=== PATIENT | male | born 1970 | race Caucasian/White ===

== ENCOUNTER 2017-10-30 05:03 | Inpatient (IN) | payer OTHER ==
[2017-10-30 06:28] LABS: Hematocrit 46.2 % (35.5-45.6); Hemoglobin 15.5 gm/dl (11.8-15.2); Mean Corpuscular HGB Conc 34 % (32-34); Mean Corpuscular Hemoglobin 30 pg (28-32); Mean Corpuscular Volume 90 fl (84-94); Platelet Count 252 K/mm3 (140-440); Red Blood Count 5.16 M/mm3 (3.65-5.03); Red Cell Distribution Width 12.8 % (13.2-15.2)
[2017-10-30 06:41] LABS: Alanine Aminotransferase 27 units/L (7-56); Albumin 4.7 g/dL (3.9-5); BUN/Creatinine Ratio 15; Blood Urea Nitrogen 9 mg/dL (9-20); Calcium 9.9 mg/dL (8.4-10.2); Hemolysis Index 36; Lipase 22 units/L (13-60)
[2017-10-30 07:55] LABS: Bilirubin,Urine NEG (Negative); Blood,Urine NEG (Negative); Color,Urine Yellow (Yellow); Mucus,Urine FEW /HPF; Nitrite,Urine NEG (Negative); Urobilinogen,Urine < 2.0 mg/dL (<2.0)
[2017-10-30 08:05] LABS: Basophils % (Manual) 0 % (0.0-1.8); Eosinophils % (Manual) 0 % (0.0-4.3); Total Cells Counted 100
[2017-10-30 08:06] LABS: Anisocytosis 1+; Platelet Estimate Cons; Toxic Granulation Few
[2017-10-30] MEDS ORDERED: ZOFRAN IV ONE (21:20)
[2017-10-30] MEDS ORDERED: SUBLIMAZE IV ONE (21:20)
[2017-10-30] MEDS ORDERED: NACL 0.9% 1000 ML 1,000 ML IV ONE (21:21)
--- NOTE | 2017-10-30 21:28 | Emergency Department Report ---
HPI - General Chief Complaint: Abdominal Pain Time Seen by Provider: 10/30/17 21:17 - HPI HPI: Room 38 The patient is a 47-year-old male presenting with a chief complaint of abdominal pain. Patient states his pain began last night and has been a constant sharp pain. Patient missed and nausea but denies vomiting diarrhea or dysuria. He gives his pain a score of 8/10. Patient's last meal occurred last night as he exhibits positive anorexia Location: Right lower quadrant Duration: Constant since last night Quality: Sharp Severity: 8/10 Modifying factors: [see above] Context: [see above] Mode of transportation: [not driving] ED Past Medical Hx - Past Medical History Previous Medical History?: No - Surgical History Past Surgical History?: No - Family History Family history: no significant - Social History Smoking Status: Never Smoker Substance Use Type: Alcohol (moderate) ED Review of Systems ROS: Stated complaint: RT SIDE PAIN Other details as noted in HPI Constitutional: other (anorexia) Gastrointestinal: abdominal pain, nausea. denies: vomiting, diarrhea Genitourinary: denies: dysuria Physical Exam - Physical Exam Vital Signs: Vital Signs 10/30/17 10/30/17 05:12 21:11 Temperature 98.7 F Pulse Rate 80 93 H Respiratory 17 18 Rate Blood Pressure 151/110 Blood Pressure 161/103 [Left] O2 Sat by Pulse 99 Oximetry Physical Exam: GENERAL: The patient is well-developed well-nourished male lying on stretcher not appearing to be in acute distress. [] HEENT: Normocephalic. Atraumatic. Extraocular motions are intact. Patient has moist mucous membranes. NECK: Supple. Trachea midline CHEST/LUNGS: Clear to auscultation. There is no respiratory distress noted. HEART/CARDIOVASCULAR: Regular. There is no tachycardia. There is no gallop rub or murmur. ABDOMEN: Abdomen is soft, with tenderness to palpation in the right upper quadrant and right lower quadrant. Patient has normal bowel sounds. There is no abdominal distention. SKIN: There is no rash. There is no edema. There is no diaphoresis. NEURO: The patient is awake, alert, and oriented. The patient is cooperative. The patient has normal speech MUSCULOSKELETAL: There is no evidence of acute injury. ED Course Vital Signs 10/30/17 10/30/17 05:12 21:11 Temperature 98.7 F Pulse Rate 80 93 H Respiratory 17 18 Rate Blood Pressure 151/110 Blood Pressure 161/103 [Left] O2 Sat by Pulse 99 Oximetry - Consultations Consultation #1: 10/31/17 00:07 Surgery paged 10/31/17 00:[address] Loving- requests hospitalist admit and she will consult ED Medical Decision Making - Lab Data Result diagrams: 10/30/17 06:09 10/30/17 06:09 Laboratory Tests 10/30/17 10/30/17 10/30/17 06:09 06:09 07:17 WBC 16.7 H RBC 5.16 H Hgb 15.5 H Hct 46.2 H MCV 90 MCH 30 MCHC 34 RDW 12.8 L Plt Count 252 Add Manual Diff Complete Total Counted 100 Seg Neutrophils % Ceramics Technician Seg Neuts % (Manual) 89.0 H Band Neutrophils % 0 Lymphocytes % (Manual) 9.0 L Reactive Lymphs % (Man) 0 Monocytes % (Manual) 2.0 Eosinophils % (Manual) 0 Basophils % (Manual) 0 Metamyelocytes % 0 Myelocytes % 0 Promyelocytes % 0 Blast Cells % 0 Nucleated RBC % Not Reportable Seg Neutrophils # Man 14.9 H Band Neutrophils # 0.0 Lymphocytes # (Manual) 1.5 Abs React Lymphs (Man) 0.0 Monocytes # (Manual) 0.3 Eosinophils # (Manual) 0.0 Basophils # (Manual) 0.0 Metamyelocytes # 0.0 Myelocytes # 0.0 Promyelocytes # 0.0 Blast Cells # 0.0 WBC Morphology Not Reportable Hypersegmented Neuts Not Reportable Hyposegmented Neuts Not Reportable Hypogranular Neuts Not Reportable Smudge Cells Not Reportable Toxic Granulation Few Toxic Vacuolation Not Reportable Dohle Bodies Not Reportable Pelger-Huet Anomaly Not Reportable Indu Rods Not Reportable Platelet Estimate Cons Clumped Platelets Not Reportable Plt Clumps, EDTA Not Reportable Large Platelets Not Reportable Giant Platelets Not Reportable Platelet Satelliting Not Reportable Plt Morphology Comment Not Reportable RBC Morphology Not Reportable Dimorphic RBCs Not Reportable Polychromasia Not Reportable Hypochromasia Not Reportable Poikilocytosis Not Reportable Anisocytosis 1+ Microcytosis Not Reportable Macrocytosis Not Reportable Spherocytes Not Reportable Pappenheimer Bodies Not Reportable Sickle Cells Not Reportable Target Cells Not Reportable Tear Drop Cells Not Reportable Ovalocytes Not Reportable Helmet Cells Not Reportable Ansari-[place] Bodies Not Reportable [place] Rings Not Reportable Noah Cells Not Reportable Bite Cells Not Reportable Crenated Cell Not Reportable Elliptocytes Not Reportable Acanthocytes (Spur) Not Reportable Rouleaux Not Reportable Hemoglobin C Crystals Not Reportable Schistocytes Not Reportable Malaria parasites Not Reportable Matthieu Bodies Not Reportable Hem Pathologist Commnt No Sodium 137 Potassium 4.2 Chloride 97.6 L Carbon Dioxide 23 Anion Gap 21 BUN 9 Creatinine 0.6 L Estimated GFR > 60 BUN/Creatinine Ratio 15 Glucose 146 H Calcium 9.9 Total Bilirubin 0.50 AST 21 ALT 27 Alkaline Phosphatase 88 Total Protein 7.8 Albumin 4.7 Albumin/Globulin Ratio 1.5 Lipase 22 Urine Color Yellow Urine Turbidity Clear Urine pH 7.0 Ur Specific [place] 1.017 Urine Protein 100 mg/dl Urine Glucose (UA) Neg Urine Ketones Neg Urine Blood Neg Urine Nitrite Neg Urine Bilirubin Neg Urine Urobilinogen < 2.0 Ur Leukocyte Esterase Neg Urine WBC (Auto) 1.0 Urine RBC (Auto) 17.0 U Epithel Cells (Auto) < 1.0 Urine Mucus Few - Radiology Data Radiology results: report reviewed (CT abdomen and pelvis, right upper quadrant ultrasound), image reviewed (CT abdomen and pelvis, right upper quadrant ultrasound) FINAL REPORT PROCEDURE: CT ABDOMEN PELVIS W CON TECHNIQUE: Computerized axial tomography of the abdomen and pelvis was performed after the IV injection of iodinated nonionic contrast. HISTORY: right lower quadrant abdominal pain COMPARISON: No prior studies are available for comparison. FINDINGS: Visualized lower thorax: There is atelectasis in both lower lungs.. Liver: Fatty infiltration of the liver.. Spleen: Normal size and attenuation. Gallbladder and biliary system: The gallbladder is distended. There is some pericholecystic fluid. Small stone in the neck of the gallbladder is noted. No dilatation of the biliary ductal system. Further evaluation with ultrasound and/or HIDA scan may be appropriate.. Pancreas: Normal. Adrenals: Normal. Kidneys: Both kidneys have normal size. No hydronephrosis. No renal stones or masses.. GI tract: The stomach is normal. A small hiatal hernia is identified. There are few loops of gas-filled small bowel in the mid abdomen, mild ileus is suspected. No obstruction is seen. There is moderate fecal debris within the cecum. The appendix region is normal. There are diverticular changes in the distal colon. Thickening of the bowel wall in the sigmoid colon is noted. There is some streaking of the mesenteric fat surrounding this region of the colon. Diverticulitis is noted. No complication at this time.. Lymph nodes and mesentery: Normal. Vasculature: Normal. Bladder: Normal. Reproductive organs: Normal. Peritoneum: No free fluid. Musculoskeletal structures: No significant abnormality. Other: None. IMPRESSION: Moderate diverticulitis of the sigmoid colon. No complication. Mild small bowel ileus. No obstruction is seen. Distended gallbladder lumen with minimal pericholecystic fluid. Suspected stone in the neck of the gallbladder region. Further evaluation with ultrasound and/or HIDA scan may be appropriate. Transcribed By: [facility] Dictated By: RONALDO OBANDO MD Electronically Authenticated By: RONALDO OBANDO MD Signed Date/Time: 10/30/171848 DD/ 48 TD/TT: 10/30/171848 FINAL REPORT PROCEDURE: US ABDOMEN LIMITED TECHNIQUE: Real-time sonography was performed of the gallbladder with image documentation. CPT 92854 HISTORY: right-sided abdominal pain COMPARISON: No prior studies are available for comparison. FINDINGS: The gallbladder lumen is distended. Multiple stones are identified the gallbladder. The gallbladder wall thickness is 2.9 millimeters. The common bile duct is not well imaged on this study. The common bile duct that is visualized measures up to 6.8 millimeters. No definitive stones are identified within this portion of the common bile duct. Further evaluation of the biliary ductal system utilizing HIDA scan, MRCP or ERCP may be appropriate. The patient did have pain during the examination consistent with a positive sonographic Mae sign. The portion of the right kidney imaged is normal. The portion of the liver imaged is normal. The pancreas is not well visualized.. IMPRESSION: Cholelithiasis with some dilatation of the common bile duct. The common bile duct is not well imaged on this study, the portion it is identified measures 6.8 millimeters. Further evaluation of the biliary ductal system may be appropriate this patient. Transcribed By: [facility] Dictated By: RONALDO OBANDO MD Electronically Authenticated By: RONALDO OBANDO MD Signed Date/Time: 10/30/171999 DD/ 99 TD/TT: 10/30/171999 - Differential Diagnosis appendicitis, cholelithiasis, renal colic Critical care attestation.: If time is entered above; I have spent that time in minutes in the direct care of this critically ill patient, excluding procedure time. ED Disposition Clinical Impression: Acute abdominal pain, Acute cholecystitis Disposition: OP ADMIT IP TO THIS HOSP Is pt being admited?: Yes Does the pt Need Aspirin: No Condition: Fair Referrals: SUDARSHAN MANJARREZ MD [Primary Care Provider] - 3-5 Days Time of Disposition: 00:16 (hospitalist paged (Dr. Hopkins))
--- NOTE | 2017-10-30 22:52 | Cat Scan Report ---
FINAL REPORT PROCEDURE: CT ABDOMEN PELVIS W CON TECHNIQUE: Computerized axial tomography of the abdomen and pelvis was performed after the IV injection of iodinated nonionic contrast. HISTORY: right lower quadrant abdominal pain COMPARISON: No prior studies are available for comparison. FINDINGS: Visualized lower thorax: There is atelectasis in both lower lungs.. Liver: Fatty infiltration of the liver.. Spleen: Normal size and attenuation. Gallbladder and biliary system: The gallbladder is distended. There is some pericholecystic fluid. Small stone in the neck of the gallbladder is noted. No dilatation of the biliary ductal system. Further evaluation with ultrasound and/or HIDA scan may be appropriate.. Pancreas: Normal. Adrenals: Normal. Kidneys: Both kidneys have normal size. No hydronephrosis. No renal stones or masses.. GI tract: The stomach is normal. A small hiatal hernia is identified. There are few loops of gas-filled small bowel in the mid abdomen, mild ileus is suspected. No obstruction is seen. There is moderate fecal debris within the cecum. The appendix region is normal. There are diverticular changes in the distal colon. Thickening of the bowel wall in the sigmoid colon is noted. There is some streaking of the mesenteric fat surrounding this region of the colon. Diverticulitis is noted. No complication at this time.. Lymph nodes and mesentery: Normal. Vasculature: Normal. Bladder: Normal. Reproductive organs: Normal. Peritoneum: No free fluid. Musculoskeletal structures: No significant abnormality. Other: None. IMPRESSION: Moderate diverticulitis of the sigmoid colon. No complication. Mild small bowel ileus. No obstruction is seen. Distended gallbladder lumen with minimal pericholecystic fluid. Suspected stone in the neck of the gallbladder region. Further evaluation with ultrasound and/or HIDA scan may be appropriate.
--- NOTE | 2017-10-31 00:03 | Ultrasound Report ---
FINAL REPORT PROCEDURE: US ABDOMEN LIMITED TECHNIQUE: Real-time sonography was performed of the gallbladder with image documentation. CPT 45646 HISTORY: right-sided abdominal pain COMPARISON: No prior studies are available for comparison. FINDINGS: The gallbladder lumen is distended. Multiple stones are identified the gallbladder. The gallbladder wall thickness is 2.9 millimeters. The common bile duct is not well imaged on this study. The common bile duct that is visualized measures up to 6.8 millimeters. No definitive stones are identified within this portion of the common bile duct. Further evaluation of the biliary ductal system utilizing HIDA scan, MRCP or ERCP may be appropriate. The patient did have pain during the examination consistent with a positive sonographic Mae sign. The portion of the right kidney imaged is normal. The portion of the liver imaged is normal. The pancreas is not well visualized.. IMPRESSION: Cholelithiasis with some dilatation of the common bile duct. The common bile duct is not well imaged on this study, the portion it is identified measures 6.8 millimeters. Further evaluation of the biliary ductal system may be appropriate this patient.
[2017-10-31] MEDS ORDERED: TYLENOL PO ONE (02:00)
[2017-10-31] MEDS ORDERED: TYLENOL ONE (02:02)
[2017-10-31] MEDS ORDERED: MILK OF MAGNESIA PO PRN (02:51)
[2017-10-31] MEDS ORDERED: DULCOLAX PR PRN (02:51)
--- NOTE | 2017-10-31 02:51 | Event Note ---
Date: 10/31/17 See dictated history and physical in reports. Acute cholecystitis surgery consulted.
[2017-10-31] MEDS ORDERED: D5W/0.45% NACL/KCL 20 MEQ 20 MEQ/1,000 ML BAG IV SCH (03:00)
[2017-10-31] MEDS: ZOFRAN IV PRN ×2 (05:13→21:50)
[2017-10-31] MEDS: ZOSYN/NS 4.5GM/100ML 4.5 GM/100 ML VIAL IV SCH ×3 (05:16→21:50)
[2017-10-31] MEDS: MORPHINE IV PRN ×2 (05:16→21:50)
--- NOTE | 2017-10-31 08:07 | History and Physical Report ---
CHIEF COMPLAINT: Right upper quadrant pain since last 8-12 hours. HISTORY OF PRESENT ILLNESS: A 47-year-old male with no significant past medical history, comes in for right upper quadrant pain of 8-12 hours duration. Pain is sharp, 10/10, associated with nausea, but no vomiting. No diarrhea. The patient's last meal was yesterday. Exacerbated by touching the right upper quadrant. Also, occasional intermittent in nature. PAST MEDICAL HISTORY: None. PAST SURGICAL HISTORY: None. FAMILY HISTORY: No hypertension, no diabetes. SOCIAL HISTORY: Does not smoke. Alcohol socially. REVIEW OF SYSTEMS: Significant for right upper quadrant pain. Pain is about 10/10. Otherwise, review of systems negative. PHYSICAL EXAMINATION: GENERAL: Young male, cooperative during examination. VITAL SIGNS: Blood pressure is 151/110, temperature is 98.7, pulse is 80, respirations are 17. HEENT: Unremarkable. Pupils equal and reactive. NECK: Supple, no lymphadenopathy, no thyromegaly. LUNGS: Clear to auscultation and percussion. Good air entry. CARDIOVASCULAR: S1, S2 heard. No gallop, no murmur, no rub. Apical impulse in left fifth intercostal space and midclavicular line. ABDOMEN: Soft. Tenderness present in the right upper quadrant. Guarding present. No rigidity. Hernial orifices are normal. Bowel sounds are normal. EXTREMITIES: Good pedal pulses. No pedal edema. CENTRAL NERVOUS SYSTEM: Alert and oriented x 4, nonfocal exam. LABORATORY DATA: Significant for white count of 16,700, hemoglobin of 15.5, hematocrit of 46.2, platelet count of 252,000. Sodium is 137, potassium is 4.2, chloride is 97.6, BUN is 9, creatinine is 0.6, glucose is 146. LFTs are normal. Urine is normal. CT of the abdomen shows distended gallbladder lumen with minimal pericholecystic fluid, suspected stone in the neck of the gallbladder region. Further evaluation with ultrasound and HIDA scan may be appropriate. The right upper quadrant ultrasound shows cholelithiasis with some dilation of the common bile duct. The common bile duct is not well imaged on this study. Further evaluation of biliary ductal system may be appropriate for this patient. ASSESSMENT AND PLAN: 1. Acute cholecystitis with cholelithiasis. Pain control and IV antibiotics for the time being. Surgery consulted. The patient may need HIDA scan. We will defer to surgery regarding ordering for HIDA scan. No other comorbidities. 2. Deep venous thrombosis prophylaxis, Lovenox 40 mg subcutaneous daily for now. The patient to be evaluated by Dr. Sugey Loving of surgery. The ER physicians talked with Dr. Sugey Loving. JOB# [id number] ARCENIO/NTS
[2017-10-31] MEDS: LOVENOX SUB-Q SCH (09:50)
--- NOTE | 2017-10-31 09:57 | Consultation ---
History of Present Illness Consult date: 10/31/17 Reason for consult: abdominal pain Chief complaint: Abdominal pain - History of present illness History of present illness: 7-year-old male with no past medical history presents to the hospital with complaints of 2 days of right upper quadrant abdominal pain radiating to the epigastrium and to the back. The pain is pressure-like. There are no alleviating factors for the pain. He states that he ate dinner on consisting of eggs and some refried beans and the pain started soon after. The pain is associated with nausea. He denies vomiting, constipation, diarrhea. No fevers. He has never had pain like this before. Past History Past Medical History: No medical history Past Surgical History: Other (skin graft to right shoulder) Social history: no significant social history (social alcohol), Family history: no significant family history Medications and Allergies Allergies Allergy/AdvReac Type Severity Reaction Status Date / Time No Known Allergies Allergy Verified 10/31/17 02:06 Active Meds: Active Medications Acetaminophen (Tylenol) 650 mg PO Q4H PRN PRN Reason: Pain MILD(1-3)/Fever >100.5/JIMENEZ Bisacodyl (Dulcolax) 10 mg [place] QDAY PRN PRN Reason: Constipation unrelieved by MOM Enoxaparin Sodium (Lovenox) 40 mg SUB-Q QDAY TIFFANIE Potassium Chloride/Dextrose/Sod Cl (D5w/0.45% Nacl/Kcl 20 Meq) 20 meq in 1,000 mls @ 100 mls/hr IV DIRECT TIFFANIE Last Admin: 10/31/17 05:13 Dose: 100 mls/hr Piperacillin Sod/Tazobactam Sod (Zosyn/Ns 4.5gm/100ml) 4.5 gm in 100 mls @ 200 mls/hr IV Q8HR TIFFANIE PRN Reason: Protocol Last Admin: 10/31/17 05:16 Dose: 200 mls/hr Magnesium Hydroxide (Milk Of Magnesia) 30 ml PO Q4H PRN PRN Reason: Constipation Morphine Sulfate (Morphine) 2 mg IV Q4H PRN PRN Reason: Pain, Moderate (4-6) Morphine Sulfate (Morphine) 4 mg IV Q4H PRN PRN Reason: Pain , Severe (7-10) Last Admin: 10/31/17 05:16 Dose: 4 mg Ondansetron HCl (Zofran) 4 mg IV Q3H PRN PRN Reason: N/V unrelieved by Brandee Last Admin: 10/31/17 05:13 Dose: 4 mg Review of Systems All systems: negative (10 point review systems performed and negative except for that listed in HPI) Exam Vital Signs Temp Pulse Resp BP Pulse Ox 98.7 F 80 17 151/110 99 10/30/17 05:12 10/30/17 05:12 10/30/17 05:12 10/30/17 05:12 10/30/17 05:12 Narrative exam: General: Awake, alert, oriented 3. Mild distress and very to pain ENT: EOMI. No scleral icterus or conjunctival pallor CV: S1, S2 present. No murmurs, rubs, gallops Respiratory: Clear to auscultation bilaterally. No wheezes, rales, rhonchi Abdomen: Soft, nondistended, tenderness to palpation in the right upper quadrant with voluntary guarding. No rebound, rigidity Extremities: No clubbing, cyanosis, edema Results - Labs 10/30/17 06:09 10/30/17 06:09 Abnormal lab results 10/30/17 Range/Units 06:09 WBC 16.7 H (4.5-11.0) K/mm3 RBC 5.16 H (3.65-5.03) M/mm3 Hgb 15.5 H (11.8-15.2) gm/dl Hct 46.2 H (35.5-45.6) % RDW 12.8 L (13.2-15.2) % Seg Neuts % (Manual) 89.0 H (40.0-70.0) % Lymphocytes % (Manual) 9.0 L (13.4-35.0) % Seg Neutrophils # Man 14.9 H (1.8-7.7) K/mm3 - Imaging CT scan - abdomen: report reviewed, image reviewed CT scan - pelvis: report reviewed, image reviewed US - abdomen: report reviewed, image reviewed Assessment and Plan 47-year-old male with 1. Acute cholecystitis 2. Sepsis secondary to #1 Plan: 1. NPO 2. IVF 3. prn pain and nausea control 4. activity as tolerated 5. DVT ppx 6. Imaging and labs reviewed - stone in the neck of gallbladder consistent with acute cholecystitis. Doubt diverticulitis based on imaging and physical exam. Dilated CBD without elevated bilirubin or LFTs. 7. Patient consented for OR today - laparoscopic, possible open cholecystectomy , with intraoperative cholangiogram. Language line used for translation. All questions answered and risks discussed. 8. IV abx - on zosyn
--- NOTE | 2017-10-31 10:00 | Progress Note ---
Assessment and Plan Assessment and plan: 47m with RUQ pain x 1 day Acute Cholecystitis for lap sue tomorrow -MRCP was done and did not show any choledocholithiasis, but is consistent with cholecystitis, plan for the OR tomorrow Sepsis continue sepsis pathway, should resolve with lap sue DVT ppx lovneox History Interval history: Review of systems Constitutional: No fevers, no malaise, no joint pains CVS: No chest pain, no orthopnea, no dyspnea on exertion, no pedal edema GI: Denies diarrhea, still complaining of right upper quadrant pain with mild nausea. Respiratory: No shortness of breath, no wheezing, no coughing Hospitalist Physical - Physical exam Narrative exam: General.: Appears well, no distress, nontoxic HEENT: Moist mucous membranes, extraocular muscles intact, no lymphadenopathy Neck: supple Cardiac: S1-S2 heard Lungs: clear to auscultation bilaterally Abdomen: Right upper quadrant tenderness. Extremities: no edema clubbing or cyanosis Skin: no rash or lesions Neurologic: no gross focal deficits Psych: appropriate behavior, appropriate mood, corporative, judgment intact - Constitutional Vitals: Temp Pulse Resp BP Pulse Ox 98.7 F 89 20 133/89 92 10/31/17 07:20 10/31/17 07:28 10/31/17 07:20 10/31/17 07:20 10/31/17 07:28 Results - Labs CBC & Chem 7: 11/01/17 04:34 11/01/17 04:34 Labs: Laboratory Last Values WBC 16.7 K/mm3 (4.5-11.0) H 10/30/17 06:09 RBC 5.16 M/mm3 (3.65-5.03) H 10/30/17 06:09 Hgb 15.5 gm/dl (11.8-15.2) H 10/30/17 06:09 Hct 46.2 % (35.5-45.6) H 10/30/17 06:09 MCV 90 fl (84-94) 10/30/17 06:09 MCH 30 pg (28-32) 10/30/17 06:09 MCHC 34 % (32-34) 10/30/17 06:09 RDW 12.8 % (13.2-15.2) L 10/30/17 06:09 Plt Count 252 K/mm3 (140-440) 10/30/17 06:09 Add Manual Diff Complete 10/30/17 06:09 Total Counted 100 10/30/17 06:09 Seg Neutrophils % Vp Production 10/30/17 06:09 Seg Neuts % (Manual) 89.0 % (40.0-70.0) H 10/30/17 06:09 Band Neutrophils % 0 % 10/30/17 06:09 Lymphocytes % (Manual) 9.0 % (13.4-35.0) L 10/30/17 06:09 Reactive Lymphs % (Man) 0 % 10/30/17 06:09 Monocytes % (Manual) 2.0 % (0.0-7.3) 10/30/17 06:09 Eosinophils % (Manual) 0 % (0.0-4.3) 10/30/17 06:09 Basophils % (Manual) 0 % (0.0-1.8) 10/30/17 06:09 Metamyelocytes % 0 % 10/30/17 06:09 Myelocytes % 0 % 10/30/17 06:09 Promyelocytes % 0 % 10/30/17 06:09 Blast Cells % 0 % 10/30/17 06:09 Nucleated RBC % Not Reportable 10/30/17 06:09 Seg Neutrophils # Man 14.9 K/mm3 (1.8-7.7) H 10/30/17 06:09 Band Neutrophils # 0.0 K/mm3 10/30/17 06:09 Lymphocytes # (Manual) 1.5 K/mm3 (1.2-5.4) 10/30/17 06:09 Abs React Lymphs (Man) 0.0 K/mm3 10/30/17 06:09 Monocytes # (Manual) 0.3 K/mm3 (0.0-0.8) 10/30/17 06:09 Eosinophils # (Manual) 0.0 K/mm3 (0.0-0.4) 10/30/17 06:09 Basophils # (Manual) 0.0 K/mm3 (0.0-0.1) 10/30/17 06:09 Metamyelocytes # 0.0 K/mm3 10/30/17 06:09 Myelocytes # 0.0 K/mm3 10/30/17 06:09 Promyelocytes # 0.0 K/mm3 10/30/17 06:09 Blast Cells # 0.0 K/mm3 10/30/17 06:09 WBC Morphology Not Reportable 10/30/17 06:09 Hypersegmented Neuts Not Reportable 10/30/17 06:09 Hyposegmented Neuts Not Reportable 10/30/17 06:09 Hypogranular Neuts Not Reportable 10/30/17 06:09 Smudge Cells Not Reportable 10/30/17 06:09 Toxic Granulation Few 10/30/17 06:09 Toxic Vacuolation Not Reportable 10/30/17 06:09 Dohle Bodies Not Reportable 10/30/17 06:09 Pelger-Huet Anomaly Not Reportable 10/30/17 06:09 Indu Rods Not Reportable 10/30/17 06:09 Platelet Estimate Cons 10/30/17 06:09 Clumped Platelets Not Reportable 10/30/17 06:09 Plt Clumps, EDTA Not Reportable 10/30/17 06:09 Large Platelets Not Reportable 10/30/17 06:09 Giant Platelets Not Reportable 10/30/17 06:09 Platelet Satelliting Not Reportable 10/30/17 06:09 Plt Morphology Comment Not Reportable 10/30/17 06:09 RBC Morphology Not Reportable 10/30/17 06:09 Dimorphic RBCs Not Reportable 10/30/17 06:09 Polychromasia Not Reportable 10/30/17 06:09 Hypochromasia Not Reportable 10/30/17 06:09 Poikilocytosis Not Reportable 10/30/17 06:09 Anisocytosis 1+ 10/30/17 06:09 Microcytosis Not Reportable 10/30/17 06:09 Macrocytosis Not Reportable 10/30/17 06:09 Spherocytes Not Reportable 10/30/17 06:09 Pappenheimer Bodies Not Reportable 10/30/17 06:09 Sickle Cells Not Reportable 10/30/17 06:09 Target Cells Not Reportable 10/30/17 06:09 Tear Drop Cells Not Reportable 10/30/17 06:09 Ovalocytes Not Reportable 10/30/17 06:09 Helmet Cells Not Reportable 10/30/17 06:09 Ansari-[place] Bodies Not Reportable 10/30/17 06:09 [place] Rings Not Reportable 10/30/17 06:09 [place] Cells Not Reportable 10/30/17 06:09 Bite Cells Not Reportable 10/30/17 06:09 Crenated Cell Not Reportable 10/30/17 06:09 Elliptocytes Not Reportable 10/30/17 06:09 Acanthocytes (Spur) Not Reportable 10/30/17 06:09 Rouleaux Not Reportable 10/30/17 06:09 Hemoglobin C Crystals Not Reportable 10/30/17 06:09 Schistocytes Not Reportable 10/30/17 06:09 Malaria parasites Not Reportable 10/30/17 06:09 Matthieu Bodies Not Reportable 10/30/17 06:09 Hem Pathologist Commnt No 10/30/17 06:09 Sodium 137 mmol/L (137-145) 10/30/17 06:09 Potassium 4.2 mmol/L (3.6-5.0) 10/30/17 06:09 Chloride 97.6 mmol/L (98-107) L 10/30/17 06:09 Carbon Dioxide 23 mmol/L (22-30) 10/30/17 06:09 Anion Gap 21 mmol/L 10/30/17 06:09 BUN 9 mg/dL (9-20) 10/30/17 06:09 Creatinine 0.6 mg/dL (0.8-1.5) L 10/30/17 06:09 Estimated GFR > 60 ml/min 10/30/17 06:09 BUN/Creatinine Ratio 15 % 10/30/17 06:09 Glucose 146 mg/dL (75-100) H 10/30/17 06:09 Calcium 9.9 mg/dL (8.4-10.2) 10/30/17 06:09 Total Bilirubin 0.50 mg/dL (0.1-1.2) 10/30/17 06:09 AST 21 units/L (5-40) 10/30/17 06:09 ALT 27 units/L (7-56) 10/30/17 06:09 Alkaline Phosphatase 88 units/L (35-129) 10/30/17 06:09 Total Protein 7.8 g/dL (6.3-8.2) 10/30/17 06:09 Albumin 4.7 g/dL (3.9-5) 10/30/17 06:09 Albumin/Globulin Ratio 1.5 % 10/30/17 06:09 Lipase 22 units/L (13-60) 10/30/17 06:09 Urine Color Yellow (Yellow) 10/30/17 07:17 Urine Turbidity Clear (Clear) 10/30/17 07:17 Urine pH 7.0 (5.0-7.0) 10/30/17 07:17 Ur Specific [place] 1.017 (1.003-1.030) 10/30/17 07:17 Urine Protein 100 mg/dl mg/dL (Negative) 10/30/17 07:17 Urine Glucose (UA) Neg mg/dL (Negative) 10/30/17 07:17 Urine Ketones Neg mg/dL (Negative) 10/30/17 07:17 Urine Blood Neg (Negative) 10/30/17 07:17 Urine Nitrite Neg (Negative) 10/30/17 07:17 Urine Bilirubin Neg (Negative) 10/30/17 07:17 Urine Urobilinogen < 2.0 mg/dL (<2.0) 10/30/17 07:17 Ur Leukocyte Esterase Neg (Negative) 10/30/17 07:17 Urine WBC (Auto) 1.0 /HPF (0.0-6.0) 10/30/17 07:17 Urine RBC (Auto) 17.0 /HPF (0.0-6.0) 10/30/17 07:17 U Epithel Cells (Auto) < 1.0 /HPF (0-13.0) 10/30/17 07:17 Urine Mucus Few /HPF 10/30/17 07:17
[2017-10-31 10:07] LABS: Basophils # (Auto) 0.1 K/mm3 (0.0-0.1); Basophils % (Auto) 0.8 % (0.0-1.8); Eosinophils % (Auto) 0.2 % (0.0-4.3); Hematocrit 45.8 % (35.5-45.6); Hemoglobin 15.4 gm/dl (11.8-15.2); Lymphocytes # (Auto) 1.3 K/mm3 (1.2-5.4); Lymphocytes % (Auto) 10.8 % (13.4-35.0); Mean Corpuscular HGB Conc 34 % (32-34); Mean Corpuscular Hemoglobin 30 pg (28-32); Mean Corpuscular Volume 90 fl (84-94); Monocytes # (Auto) 1.1 K/mm3 (0.0-0.8); Platelet Count 214 K/mm3 (140-440); Red Blood Count 5.12 M/mm3 (3.65-5.03); Red Cell Distribution Width 12.9 % (13.2-15.2)
[2017-10-31 10:22] LABS: Alanine Aminotransferase 198 units/L (7-56); BUN/Creatinine Ratio 11; Blood Urea Nitrogen 9 mg/dL (9-20); Calcium 9.3 mg/dL (8.4-10.2); Hemolysis Index 3
--- NOTE | 2017-10-31 11:19 | Event Note ---
Date: 10/31/17 Repeat labs obtained today. WBC better. Bilirubin and LFTS are elevated, suspect choledocolithiais. Surgery cancelled for today. Will obtain MRCP and obtain GI consult. Trend LFTs, Bilirubin. Will obtain direct bilirubin. I will discuss new findings with patient and Dr. Sarah.
[2017-10-31 11:41] LABS: Bilirubin,Direct 2.2 mg/dL (0-0.2)
--- NOTE | 2017-10-31 13:33 | Gastroenterology Consultation ---
History of Present Illness - Reason for Consult Consult date: 10/31/17 Jaundice, suspected choledocholithiasis Requesting physician: NIGEL CLARK - History of Present Illness The patient is a 47 year old man who was well until a few days before admission when he developed severe RUQ pain and nausea. ER evaluation revealed symptomatic GB stones. He was not jaundiced on admission and surgery was planned today before repeat LFTs reveled a rise in his T. bili to 3.5. The u/s revealed mild dilation of the CBD at 6.8 and multiple GB stones. The CT revealed no biliary dilation, but mild sigmoid diverticulitis. Past History Past Medical History: No medical history Past Surgical History: Other (skin graft to right shoulder) Social history: no significant social history (social alcohol), Family history: no significant family history Medications and Allergies Allergies Allergy/AdvReac Type Severity Reaction Status Date / Time No Known Allergies Allergy Verified 10/31/17 02:06 Active Meds: Active Medications Acetaminophen (Tylenol) 650 mg PO Q4H PRN PRN Reason: Pain MILD(1-3)/Fever >100.5/JIMENEZ Bisacodyl (Dulcolax) 10 mg OK QDAY PRN PRN Reason: Constipation unrelieved by MOM Enoxaparin Sodium (Lovenox) 40 mg SUB-Q QDAY TIFFANIE Last Admin: 10/31/17 09:50 Dose: 40 mg Piperacillin Sod/Tazobactam Sod (Zosyn/Ns 4.5gm/100ml) 4.5 gm in 100 mls @ 200 mls/hr IV Q8HR TIFFANIE PRN Reason: Protocol Last Admin: 10/31/17 05:16 Dose: 200 mls/hr Potassium Chloride/Dextrose/Sod Cl (D5w/Ns W/Kcl 20meq) 20 meq in 1,000 mls @ 150 mls/hr IV DIRECT TIFFANIE Magnesium Hydroxide (Milk Of Magnesia) 30 ml PO Q4H PRN PRN Reason: Constipation Morphine Sulfate (Morphine) 2 mg IV Q4H PRN PRN Reason: Pain, Moderate (4-6) Morphine Sulfate (Morphine) 4 mg IV Q4H PRN PRN Reason: Pain , Severe (7-10) Last Admin: 10/31/17 05:16 Dose: 4 mg Ondansetron HCl (Zofran) 4 mg IV Q3H PRN PRN Reason: N/V unrelieved by Brandee Last Admin: 10/31/17 05:13 Dose: 4 mg Review of Systems - Review of Systems Constitutional: no weight loss, no weight gain, no fever Eyes: no change in vision Ears, Nose, Throat: no decreased hearing, no difficulty swallowing, no epistaxis Breasts: deferred Cardiovascular: no chest pain, no shortness of breath Respiratory: no cough, no shortness of breath, no wheezing Gastrointestinal: abdominal pain, nausea, no vomiting, no constipation, no change in bowel habits, no coffee ground emesis, no BRBPR, no melena Rectal: no pain Male Genitourinary: deferred Musculoskeletal: no gait dysfunction, no joint pain, no muscle pain Integumentary: no rash, no pruritis, no jaundice Neurological: no paralysis, no weakness, no memory loss Psychiatric: no memory loss, no change in appetite Endocrine: no cold intolerance, no heat intolerance Hematologic/Lymphatic: no easy bruising, no easy bleeding Allergic/Immunologic: no wheezing Exam - Constitutional Vital Signs: Temp Pulse Resp BP Pulse Ox 100.3 F H 96 H 20 156/100 91 10/31/17 12:13 10/31/17 12:13 10/31/17 12:13 10/31/17 12:13 10/31/17 12:13 General appearance: no acute distress, well-nourished - EENT Eyes: PERRL ENT: hearing intact, clear oral mucosa, dentition normal - Neck Neck: supple, normal ROM, no masses or JVD - Respiratory Respiratory effort: normal Respiratory: bilateral: CTA - Breasts Breasts: deferred - Cardiovascular Rhythm: regular Heart Sounds: Present: S1 & S2. Absent: gallop, rub Extremities: pulses intact, No edema, normal color, Full ROM - Gastrointestinal General gastrointestinal: Present: soft, tender (mild RUQ tenderness without rebound or guarding), normal bowel sounds. Absent: distended, hepatomegaly, splenomegaly, mass Rectal Exam: deferred - Genitourinary Male Genitourinary: deferred - Integumentary Integumentary: Present: clear, warm, dry - Neurologic Neurological: alert and oriented x3 - Psychiatric Psychiatric: appropriate mood/affect, intact judgment & insight, memory intact - Labs CBC & Chem 7: 10/31/17 09:51 01/06/18 09:51 Lab Results: Laboratory Results - last 24 hr 10/30/17 10/31/17 10/31/17 06:09 09:51 09:51 WBC 16.7 H 12.4 H RBC 5.16 H 5.12 H Hgb 15.5 H 15.4 H Hct 46.2 H 45.8 H MCV 90 90 MCH 30 30 MCHC 34 34 RDW 12.8 L 12.9 L Plt Count 252 214 Lymph % (Auto) 10.8 L [place] % (Auto) 9.0 H Eos % (Auto) 0.2 Baso % (Auto) 0.8 Lymph # 1.3 [place] # 1.1 H Eos # 0.0 Baso # 0.1 Add Manual Diff Complete Total Counted 100 Seg Neutrophils % Deck Engineer 79.2 H Seg Neuts % (Manual) 89.0 H Band Neutrophils % 0 Lymphocytes % (Manual) 9.0 L Reactive Lymphs % (Man) 0 Monocytes % (Manual) 2.0 Eosinophils % (Manual) 0 Basophils % (Manual) 0 Metamyelocytes % 0 Myelocytes % 0 Promyelocytes % 0 Blast Cells % 0 Seg Neutrophils # 9.8 H Seg Neutrophils # Man 14.9 H Band Neutrophils # 0.0 Lymphocytes # (Manual) 1.5 Abs React Lymphs (Man) 0.0 Monocytes # (Manual) 0.3 Eosinophils # (Manual) 0.0 Basophils # (Manual) 0.0 Metamyelocytes # 0.0 Myelocytes # 0.0 Promyelocytes # 0.0 Blast Cells # 0.0 Toxic Granulation Few Platelet Estimate Cons Anisocytosis 1+ Hem Pathologist Commnt No Sodium 138 Potassium 3.8 Chloride 98.6 Carbon Dioxide 27 Anion Gap 16 BUN 9 Creatinine 0.8 Estimated GFR > 60 BUN/Creatinine Ratio 11 Glucose 140 H Calcium 9.3 Total Bilirubin 3.40 H Direct Bilirubin Indirect Bilirubin AST 256 H ALT 198 H Alkaline Phosphatase 139 H Total Protein 7.7 Albumin 4.0 Albumin/Globulin Ratio 1.1 10/31/17 09:51 WBC RBC Hgb Hct MCV MCH MCHC RDW Plt Count Lymph % (Auto) [place] % (Auto) Eos % (Auto) Baso % (Auto) Lymph # [place] # Eos # Baso # Add Manual Diff Total Counted Seg Neutrophils % Seg Neuts % (Manual) Band Neutrophils % Lymphocytes % (Manual) Reactive Lymphs % (Man) Monocytes % (Manual) Eosinophils % (Manual) Basophils % (Manual) Metamyelocytes % Myelocytes % Promyelocytes % Blast Cells % Seg Neutrophils # Seg Neutrophils # Man Band Neutrophils # Lymphocytes # (Manual) Abs React Lymphs (Man) Monocytes # (Manual) Eosinophils # (Manual) Basophils # (Manual) Metamyelocytes # Myelocytes # Promyelocytes # Blast Cells # Toxic Granulation Platelet Estimate Anisocytosis Hem Pathologist Commnt Sodium Potassium Chloride Carbon Dioxide Anion Gap BUN Creatinine Estimated GFR BUN/Creatinine Ratio Glucose Calcium Total Bilirubin 3.50 H Direct Bilirubin 2.2 H Indirect Bilirubin 1.3 AST ALT Alkaline Phosphatase Total Protein Albumin Albumin/Globulin Ratio - Imaging CT Scan: report reviewed Ultrasound: report reviewed Assessment and Plan - Patient Problems (1) Choledocholithiasis with acute cholecystitis Current Visit: Yes Status: Acute Plan to address problem: Suspected CBD stones with evolving jaundice. MRCP is planned today. Will follow. Will need ERCP if stones found in CBD. Thank you for asking me to see him in consultation. (2) Acute cholecystitis Current Visit: Yes Status: Acute
--- NOTE | 2017-10-31 15:18 | Magnetic Resonance Report ---
FINAL REPORT PROCEDURE: MR ABDOMEN MRCP TECHNIQUE: Magnetic resonance cholangiopancreatography of the biliary system was performed without paramagnetic contrast. The original data was reconstructed in 3-dimensions. HISTORY: Cholelithiasis COMPARISON: No prior studies are available for comparison. FINDINGS: There is confluent airspace infiltrate in the right lower lobe of the lung. Trace bilateral pleural effusions are present. There is a trace amount of free fluid surrounding the liver and in the right lower abdomen. Liver: Limited views are normal. Intrahepatic bile ducts: Normal caliber Extrahepatic bile ducts: Common bile duct measures 4 millimeters in caliber. No filling defects are visible. Gallbladder: There are several rounded low-attenuation gallstones present, including in the gallbladder neck. There is gallbladder wall thickening and surrounding edema, concerning for cholecystitis. Pancreatic ducts: Normal caliber Bile duct filling defects: None. IMPRESSION: There is cholelithiasis. There is also edema of the gallbladder wall and thickening, concerning for acute cholecystitis. There is no biliary ductal dilatation. No biliary duct filling defects are seen. Right lower lobe airspace infiltrate and trace bilateral pleural effusions. Trace amount of free fluid is seen adjacent to the liver
[2017-10-31] MEDS: D5W/NS W/KCL 20MEQ 20 MEQ/1,000 ML BAG IV SCH ×2 (17:22→21:55)
[2017-11-01] MEDS: MORPHINE IV PRN ×2 (04:55→17:10)
[2017-11-01] MEDS: ZOFRAN IV PRN (04:56)
[2017-11-01] MEDS: TYLENOL PO PRN ×2 (04:59→19:55)
[2017-11-01 05:04] LABS: Basophils # (Auto) 0.1 K/mm3 (0.0-0.1); Basophils % (Auto) 0.6 % (0.0-1.8); Eosinophils # (Auto) 0.1 K/mm3 (0.0-0.4); Hematocrit 43.2 % (35.5-45.6); Hemoglobin 14.7 gm/dl (11.8-15.2); Lymphocytes # (Auto) 1.3 K/mm3 (1.2-5.4); Lymphocytes % (Auto) 13.8 % (13.4-35.0); Mean Corpuscular HGB Conc 34 % (32-34); Mean Corpuscular Hemoglobin 31 pg (28-32); Mean Corpuscular Volume 90 fl (84-94); Monocytes # (Auto) 0.8 K/mm3 (0.0-0.8); Monocytes % (Auto) 8.7 % (0.0-7.3); Platelet Count 203 K/mm3 (140-440); Red Blood Count 4.78 M/mm3 (3.65-5.03)
[2017-11-01 05:10] LABS: Alanine Aminotransferase 213 units/L (7-56); Albumin 3.6 g/dL (3.9-5); BUN/Creatinine Ratio 11; Bilirubin,Direct 0.9 mg/dL (0-0.2); Blood Urea Nitrogen 8 mg/dL (9-20); Calcium 8.9 mg/dL (8.4-10.2); Hemolysis Index 4
[2017-11-01] MEDS: ZOSYN/NS 4.5GM/100ML 4.5 GM/100 ML VIAL IV SCH ×3 (05:41→21:14)
[2017-11-01] MEDS: D5W/NS W/KCL 20MEQ 20 MEQ/1,000 ML BAG IV SCH ×2 (05:42→17:06)
[2017-11-01] MEDS: LOVENOX SUB-Q SCH (09:05)
--- NOTE | 2017-11-01 09:55 | Progress Note ---
Assessment and Plan 47-year-old male with 1. Acute cholecystitis 2. elevated bilirubin and LFTs Plan: 1. NPO, IVF 2. check CMP, bilirubin in am. Labs trending down, suspect passed CBD stone. MRCP negative for choledocolithiasis 3. if labs continue to improve, will proceed with OR for cholecystectomy in am 4. pain and nausea control prn 5. activity ad nydia 6. DVT ppx 7. continue zosyn IV 8. GI consult noted and recs appreciated Subjective Date of service: 11/01/17 Narrative: Patient seen and examined at bedside. He is feeling better today. His abdominal pain is improved. No nausea, vomiting. For liquids. Objective Vital Signs - 12hr 11/01/17 11/01/17 11/01/17 00:48 00:49 06:11 Temperature 97.9 F 98.7 F Pulse Rate 82 86 81 Respiratory 20 20 Rate Blood Pressure 140/88 136/87 O2 Sat by Pulse 91 90 89 Oximetry 11/01/17 11/01/17 11/01/17 06:12 08:00 08:01 Temperature 98.2 F Pulse Rate 75 74 80 Respiratory 18 Rate Blood Pressure 131/91 131/91 O2 Sat by Pulse 89 90 90 Oximetry - General physical appearance Narrative Exam: General: Awake, alert, oriented 3. No apparent distress CV: S1, S2 present Respiratory: No audible wheezes Abdomen: Soft, nondistended, positive tenderness to palpation in the right upper quadrant. No rebound, rigidity, guarding Remedies: No clubbing, cyanosis, edema - Labs 11/01/17 04:34 11/01/17 04:34 Diabetes panel 10/31/17 11/01/17 Range/Units 09:51 04:34 Sodium 138 140 (137-145) mmol/L Potassium 3.8 3.7 (3.6-5.0) mmol/L Chloride 98.6 103.0 (98-107) mmol/L Carbon Dioxide 27 28 (22-30) mmol/L BUN 9 8 L (9-20) mg/dL Creatinine 0.8 0.7 L (0.8-1.5) mg/dL Glucose 140 H 117 H (75-100) mg/dL Calcium 9.3 8.9 (8.4-10.2) mg/dL AST 256 H 166 H (5-40) units/L ALT 198 H 213 H (7-56) units/L Alkaline Phosphatase 139 H 147 H (35-129) units/L Total Protein 7.7 6.8 (6.3-8.2) g/dL Albumin 4.0 3.6 L (3.9-5) g/dL Calcium panel 10/31/17 11/01/17 Range/Units 09:51 04:34 Calcium 9.3 8.9 (8.4-10.2) mg/dL Albumin 4.0 3.6 L (3.9-5) g/dL Pituitary panel 10/31/17 11/01/17 Range/Units 09:51 04:34 Sodium 138 140 (137-145) mmol/L Potassium 3.8 3.7 (3.6-5.0) mmol/L Chloride 98.6 103.0 (98-107) mmol/L Carbon Dioxide 27 28 (22-30) mmol/L BUN 9 8 L (9-20) mg/dL Creatinine 0.8 0.7 L (0.8-1.5) mg/dL Glucose 140 H 117 H (75-100) mg/dL Calcium 9.3 8.9 (8.4-10.2) mg/dL Adrenal panel 10/31/17 10/31/17 11/01/17 Range/Units 09:51 09:51 04:34 Sodium 138 140 (137-145) mmol/L Potassium 3.8 3.7 (3.6-5.0) mmol/L Chloride 98.6 103.0 (98-107) mmol/L Carbon Dioxide 27 28 (22-30) mmol/L BUN 9 8 L (9-20) mg/dL Creatinine 0.8 0.7 L (0.8-1.5) mg/dL Glucose 140 H 117 H (75-100) mg/dL Calcium 9.3 8.9 (8.4-10.2) mg/dL Total Bilirubin 3.40 H 3.50 H 1.70 H (0.1-1.2) mg/dL AST 256 H 166 H (5-40) units/L ALT 198 H 213 H (7-56) units/L Alkaline Phosphatase 139 H 147 H (35-129) units/L Total Protein 7.7 6.8 (6.3-8.2) g/dL Albumin 4.0 3.6 L (3.9-5) g/dL
--- NOTE | 2017-11-01 10:29 | Gastroenterology Progress Note ---
Assessment and Plan - Patient Problems (1) Choledocholithiasis with acute cholecystitis Current Visit: Yes Status: Acute Plan to address problem: Likely passed a CBD stone. MRCP revealed normal size CBD without filling defects. T. bili 3.5---->1.7 overnight. Asymptomatic. No need for ERCP unless IOC reveals a stone. Will sign off and follow at a distance. Please recontact us PRN. Thank you. (2) Acute cholecystitis Current Visit: Yes Status: Acute Subjective Date of service: 11/01/17 Principal diagnosis: Jaundice, acute cholecystitis Interval history: The patient reports feeling good. No abdominal pain today. Objective - Constitutional Vitals: Temp Pulse Resp BP Pulse Ox 98.2 F 80 18 131/91 90 11/01/17 08:00 11/01/17 08:01 11/01/17 08:00 11/01/17 08:01 11/01/17 08:01 General appearance: no acute distress - EENT ENT: hearing intact, clear oral mucosa, other (sclerae are non icteric) - Neck Neck: supple, normal ROM - Respiratory Respiratory effort: normal Respiratory: bilateral: CTA - Cardiovascular Rhythm: regular - Gastrointestinal General gastrointestinal: Present: soft, non-tender, non-distended, normal bowel sounds - Neurologic Neurological: alert and oriented x3 - Labs CBC & Chem 7: 11/01/17 04:34 11/01/17 04:34 Labs: Laboratory Results - last 24 hr 10/31/17 11/01/17 11/01/17 09:51 04:34 04:34 WBC 9.2 RBC 4.78 Hgb 14.7 Hct 43.2 MCV 90 MCH 31 MCHC 34 RDW 13.0 L Plt Count 203 Lymph % (Auto) 13.8 [place] % (Auto) 8.7 H Eos % (Auto) 1.0 Baso % (Auto) 0.6 Lymph # 1.3 [place] # 0.8 Eos # 0.1 Baso # 0.1 Seg Neutrophils % 75.9 H Seg Neutrophils # 6.9 Sodium 140 Potassium 3.7 Chloride 103.0 Carbon Dioxide 28 Anion Gap 13 BUN 8 L Creatinine 0.7 L Estimated GFR > 60 BUN/Creatinine Ratio 11 Glucose 117 H Calcium 8.9 Total Bilirubin 3.50 H 1.70 H Direct Bilirubin 2.2 H 0.9 H Indirect Bilirubin 1.3 0.8 AST 166 H ALT 213 H Alkaline Phosphatase 147 H Total Protein 6.8 Albumin 3.6 L Albumin/Globulin Ratio 1.1
[2017-11-02] MEDS: ZOSYN/NS 4.5GM/100ML 4.5 GM/100 ML VIAL IV SCH ×3 (06:05→21:16)
[2017-11-02 06:07] LABS: Alanine Aminotransferase 206 units/L (7-56); Albumin 3.6 g/dL (3.9-5); BUN/Creatinine Ratio 10; Bilirubin,Direct 0.4 mg/dL (0-0.2); Blood Urea Nitrogen 6 mg/dL (9-20); Calcium 9.4 mg/dL (8.4-10.2); Hemolysis Index 7
[2017-11-02] MEDS: LOVENOX SUB-Q SCH (10:00)
[2017-11-02] MEDS ORDERED: NACL 0.9% 1000 ML 1,000 ML IV SCH (10:30)
[2017-11-02] MEDS ORDERED: PROVENTIL IH NR (10:30)
--- NOTE | 2017-11-02 10:52 | Anesthesia Consultation ---
Anesthesia Consult and Med Hx Date of service: 11/02/17 - Airway Anesthetic Teeth Evaluation: Good ROM Head & Neck: Adequate Mental/Hyoid Distance: Adequate Mallampati Class: Class III Intubation Access Assessment: Possibly Difficult - Pre-Operative Health Status ASA Pre-Surgery Classification: ASA2 Proposed Anesthetic Plan: General - Pulmonary Hx Asthma: No COPD: No Hx Pneumonia: No - Endocrine Hx End Stage Renal Disease: No Hx Liver Disease: Yes (gallbladder disease) - Other Systems Hx Obesity: Yes (BMI 34.5)
--- NOTE | 2017-11-02 10:52 | Anesthesia Day of Surgery ---
Anesthesia Day of Surgery - Day of Surgery Patient Examined: Yes Patient H&P Reviewed: Yes Patient is NPO: Yes
[2017-11-02] MEDS ORDERED: VERSED IV NR (11:00)
[2017-11-02] MEDS ORDERED: PEPCID IV NR (11:00)
[2017-11-02] MEDS ORDERED: XYLOCAINE MPF 2% ONE (11:03)
[2017-11-02] MEDS ORDERED: DIPRIVAN 10 MG/ML IV ONE (11:03)
[2017-11-02] MEDS ORDERED: DILAUDID ONE (11:04)
[2017-11-02] MEDS ORDERED: ZEMURON IV ONE (11:05)
[2017-11-02] MEDS ORDERED: QUELICIN ONE (11:09)
[2017-11-02] MEDS ORDERED: MARCAINE 0.5% 30 ML INFILTRATI ONE (11:25)
[2017-11-02] MEDS ORDERED: XYLOCAINE 1% 20 mL ONE (11:25)
[2017-11-02] MEDS ORDERED: NACL 0.9% IR ONE ×2 (11:45)
[2017-11-02] MEDS ORDERED: XYLOCAINE 1% 20 mL INFILTRATI ONE (11:45)
[2017-11-02] MEDS ORDERED: MARCAINE 0.5% INFILTRATI ONE (11:45)
[2017-11-02] MEDS ORDERED: OMNIPAQUE 300 MG/50 ML (CATH LAB) IV ONE (11:45)
--- NOTE | 2017-11-02 11:52 | XRay Report ---
PORTABLE CHEST INDICATION: Fever, cough, low oxygen saturation. Preop. COMPARISON: None similar. FINDINGS: Portable, frontal chest radiograph demonstrates limited inspiration with mild exaggerated cardiomediastinal silhouette and slightly crowded markings centrally and toward the bases. Right hemidiaphragm mildly elevated. No large pleural effusions. Intact bones. CONCLUSION: Hypoventilatory changes, as described. Thank you for the opportunity to participate in this patient's care.
[2017-11-02] MEDS ORDERED: NEO SYNEPHRINE/NS Syringe(OR USE) IV ONE (12:28)
[2017-11-02] MEDS ORDERED: ZOFRAN ONE (12:43)
[2017-11-02] MEDS ORDERED: DECADRON ONE (12:44)
[2017-11-02] MEDS ORDERED: ROBINUL ONE (12:44)
[2017-11-02] MEDS ORDERED: NEOSTIGMINE ONE (12:44)
[2017-11-02] MEDS ORDERED: NACL 0.9% 100 ML ONE (12:51)
[2017-11-02] MEDS ORDERED: ePHEDrine SULFATE ONE (12:59)
[2017-11-02] MEDS ORDERED: NACL 0.9% 1000 ML 1,000 ML ONE (13:46)
--- NOTE | 2017-11-02 14:05 | Operative Report ---
Operative Report Operative Report: Date of operation: 11/02/2017 Preoperative diagnosis: Acute cholecystitis postOperative diagnoses: Acute gangrenous cholecystitis Procedure performed: Laparoscopic cholecystectomy, attempted intraoperative cholangiogram Surgeon: Ulices Loving DO Anesthesia: Gen. endotracheal anesthesia Findings: Distended, gangrenous gallbladder with a thick wall, pericholecystic fluid, multiple stones Abdomen: Gallbladder Estimated blood loss: 10 mL Complications: None Disposition: Stable to PACU HPI an indication: 47-year-old male who presented to the hospital with complaints of severe right upper quadrant abdominal pain. He was found to have acute cholecystitis on imaging consisting of a CAT scan of abdomen and pelvis and a right upper quadrant ultrasound. The patient's bilirubin and LFTs were elevated, with a high suspicion for choledocholithiasis, however MRCP was negative and his LFTs were trending down. The patient was then consented for a laparoscopic possible open cholecystectomy with intraoperative cholangiogram. All risks were discussed and questions answered using Language line. Procedure in detail: The patient was identified in the preoperative area and taken back to the operating room, placed on the operating room table in supine position. After anesthesia was induced, the abdomen was prepped and draped in usual sterile fashion and timeout was performed. Local anesthetic was infiltrated into all of the skin incision sites. Using a 15 blade a supraumbilical incision was made and through this a Veress needle was used to insufflate the abdomen. The position of the veress needle was confirmed with the saline drop test and the abdomen was then insufflated to 15 mmHg. The veress needle was then removed and a 5 mm trocar placed using Optiview trocar. The abdomen was then inspected and there was no underlying injury to any of the abdominal contents. The patient was then placed into reverse Trendelberg and tilted to the left. The gallbladder was visualized and did appear gangrenous and very dilated. The gallbladder was grasped and lifted cephalad and was decompressed with a laparoscopic needle and 60 mL syringe. Approximately 120 mL of green bile were aspirated. The gallbladder was then easier to grasp and retract. The cystic duct and artery were then carefully dissected and the critical view obtained. One clip was placed distally on the cystic duct and a small ductotomy created. Using a pediatric feeding tube, I tried to cannulate the cystic duct however despite using the smallest tube, the cystic duct caliber was too small to cannulate successfully. We therefore aborted the cholangiogram. 3 additional clips were then placed on the proximal aspect of the cystic duct, and 3 clips on the cystic artery proximally and one distal. The cystic duct and cystic artery were then transected in between the clips. The gallbladder was taken off the liver bed using hook electrocautery. There was pericholecystic edema and very thick gallbladder wall. Gallbladder was placed into a Endo Catch bag and removed from the abdomen via an 0 mm port. The gallbladder fossa was then inspected and there was no identifiable bleeding or bile leakage. Hemostasis was ensured. The clips on the cystic duct and artery were visualized and intact. The patient was then flattened and Morison's pouch was irrigated and the irrigant returned clear. All millimeter port fascia was closed with 2, interrupted 0 Vicryl sutures using the Dionte Plasencia device. The remaining ports removed under direct visualization. Skin incisions were closed with 4-0 Monocryl subcuticular stitches and skin glue. All skin incisions were once again infiltrated with local anesthetic. At the end case all sponge, instrument, sharp counts were correct 2. The patient was awoken from anesthesia, extubated, taken to PACU in stable condition. All ports removed under direct visualization
[2017-11-02] MEDS ORDERED: DILAUDID IV ONE (15:00)
[2017-11-02] MEDS ORDERED: NORMODYNE IV ONE (15:00)
--- NOTE | 2017-11-02 15:22 | Progress Note ---
Assessment and Plan Assessment and plan: 47m with RUQ pain x 1 day Acute Cholecystitis for lap sue tomorrow -MRCP was done and did not show any choledocholithiasis, but is consistent with cholecystitis, plan for the OR today Sepsis continue sepsis pathway, should resolve with lap sue DVT ppx lovneox History Interval history: Review of systems Constitutional: No fevers, no malaise, no joint pains CVS: No chest pain, no orthopnea, no dyspnea on exertion, no pedal edema GI: Denies diarrhea, still complaining of right upper quadrant pain with mild nausea. Respiratory: No shortness of breath, no wheezing, no coughing Hospitalist Physical - Physical exam Narrative exam: General.: Appears well, no distress, nontoxic HEENT: Moist mucous membranes, extraocular muscles intact, no lymphadenopathy Neck: supple Cardiac: S1-S2 heard Lungs: clear to auscultation bilaterally Abdomen: Right upper quadrant tenderness. Extremities: no edema clubbing or cyanosis Skin: no rash or lesions Neurologic: no gross focal deficits Psych: appropriate behavior, appropriate mood, corporative, judgment intact - Constitutional Vitals: Temp Pulse Resp BP Pulse Ox 98.3 F 97 H 24 160/104 97 11/02/17 14:10 11/02/17 15:09 11/02/17 15:10 11/02/17 15:09 11/02/17 15:00 Results - Labs CBC & Chem 7: 11/01/17 04:34 11/02/17 05:15 Labs: Laboratory Last Values WBC 9.2 K/mm3 (4.5-11.0) 11/01/17 04:34 RBC 4.78 M/mm3 (3.65-5.03) 11/01/17 04:34 Hgb 14.7 gm/dl (11.8-15.2) 11/01/17 04:34 Hct 43.2 % (35.5-45.6) 11/01/17 04:34 MCV 90 fl (84-94) 11/01/17 04:34 MCH 31 pg (28-32) 11/01/17 04:34 MCHC 34 % (32-34) 11/01/17 04:34 RDW 13.0 % (13.2-15.2) L 11/01/17 04:34 Plt Count 203 K/mm3 (140-440) 11/01/17 04:34 Lymph % (Auto) 13.8 % (13.4-35.0) 11/01/17 04:34 [place] % (Auto) 8.7 % (0.0-7.3) H 11/01/17 04:34 Eos % (Auto) 1.0 % (0.0-4.3) 11/01/17 04:34 Baso % (Auto) 0.6 % (0.0-1.8) 11/01/17 04:34 Lymph # 1.3 K/mm3 (1.2-5.4) 11/01/17 04:34 Centre # 0.8 K/mm3 (0.0-0.8) 11/01/17 04:34 Eos # 0.1 K/mm3 (0.0-0.4) 11/01/17 04:34 Baso # 0.1 K/mm3 (0.0-0.1) 11/01/17 04:34 Add Manual Diff Complete 10/30/17 06:09 Total Counted 100 10/30/17 06:09 Seg Neutrophils % 75.9 % (40.0-70.0) H 11/01/17 04:34 Seg Neuts % (Manual) 89.0 % (40.0-70.0) H 10/30/17 06:09 Band Neutrophils % 0 % 10/30/17 06:09 Lymphocytes % (Manual) 9.0 % (13.4-35.0) L 10/30/17 06:09 Reactive Lymphs % (Man) 0 % 10/30/17 06:09 Monocytes % (Manual) 2.0 % (0.0-7.3) 10/30/17 06:09 Eosinophils % (Manual) 0 % (0.0-4.3) 10/30/17 06:09 Basophils % (Manual) 0 % (0.0-1.8) 10/30/17 06:09 Metamyelocytes % 0 % 10/30/17 06:09 Myelocytes % 0 % 10/30/17 06:09 Promyelocytes % 0 % 10/30/17 06:09 Blast Cells % 0 % 10/30/17 06:09 Nucleated RBC % Not Reportable 10/30/17 06:09 Seg Neutrophils # 6.9 K/mm3 (1.8-7.7) 11/01/17 04:34 Seg Neutrophils # Man 14.9 K/mm3 (1.8-7.7) H 10/30/17 06:09 Band Neutrophils # 0.0 K/mm3 10/30/17 06:09 Lymphocytes # (Manual) 1.5 K/mm3 (1.2-5.4) 10/30/17 06:09 Abs React Lymphs (Man) 0.0 K/mm3 10/30/17 06:09 Monocytes # (Manual) 0.3 K/mm3 (0.0-0.8) 10/30/17 06:09 Eosinophils # (Manual) 0.0 K/mm3 (0.0-0.4) 10/30/17 06:09 Basophils # (Manual) 0.0 K/mm3 (0.0-0.1) 10/30/17 06:09 Metamyelocytes # 0.0 K/mm3 10/30/17 06:09 Myelocytes # 0.0 K/mm3 10/30/17 06:09 Promyelocytes # 0.0 K/mm3 10/30/17 06:09 Blast Cells # 0.0 K/mm3 10/30/17 06:09 WBC Morphology Not Reportable 10/30/17 06:09 Hypersegmented Neuts Not Reportable 10/30/17 06:09 Hyposegmented Neuts Not Reportable 10/30/17 06:09 Hypogranular Neuts Not Reportable 10/30/17 06:09 Smudge Cells Not Reportable 10/30/17 06:09 Toxic Granulation Few 10/30/17 06:09 Toxic Vacuolation Not Reportable 10/30/17 06:09 Dohle Bodies Not Reportable 10/30/17 06:09 Pelger-Huet Anomaly Not Reportable 10/30/17 06:09 Indu Rods Not Reportable 10/30/17 06:09 Platelet Estimate Cons 10/30/17 06:09 Clumped Platelets Not Reportable 10/30/17 06:09 Plt Clumps, EDTA Not Reportable 10/30/17 06:09 Large Platelets Not Reportable 10/30/17 06:09 Giant Platelets Not Reportable 10/30/17 06:09 Platelet Satelliting Not Reportable 10/30/17 06:09 Plt Morphology Comment Not Reportable 10/30/17 06:09 RBC Morphology Not Reportable 10/30/17 06:09 Dimorphic RBCs Not Reportable 10/30/17 06:09 Polychromasia Not Reportable 10/30/17 06:09 Hypochromasia Not Reportable 10/30/17 06:09 Poikilocytosis Not Reportable 10/30/17 06:09 Anisocytosis 1+ 10/30/17 06:09 Microcytosis Not Reportable 10/30/17 06:09 Macrocytosis Not Reportable 10/30/17 06:09 Spherocytes Not Reportable 10/30/17 06:09 Pappenheimer Bodies Not Reportable 10/30/17 06:09 Sickle Cells Not Reportable 10/30/17 06:09 Target Cells Not Reportable 10/30/17 06:09 Tear Drop Cells Not Reportable 10/30/17 06:09 Ovalocytes Not Reportable 10/30/17 06:09 Helmet Cells Not Reportable 10/30/17 06:09 Ansari-Buckley Bodies Not Reportable 10/30/17 06:09 Leroy Rings Not Reportable 10/30/17 06:09 Noah Cells Not Reportable 10/30/17 06:09 Bite Cells Not Reportable 10/30/17 06:09 Crenated Cell Not Reportable 10/30/17 06:09 Elliptocytes Not Reportable 10/30/17 06:09 Acanthocytes (Spur) Not Reportable 10/30/17 06:09 Rouleaux Not Reportable 10/30/17 06:09 Hemoglobin C Crystals Not Reportable 10/30/17 06:09 Schistocytes Not Reportable 10/30/17 06:09 Malaria parasites Not Reportable 10/30/17 06:09 Matthieu Bodies Not Reportable 10/30/17 06:09 Hem Pathologist Commnt No 10/30/17 06:09 Sodium 139 mmol/L (137-145) 11/02/17 05:15 Potassium 3.6 mmol/L (3.6-5.0) 11/02/17 05:15 Chloride 100.8 mmol/L (98-107) 11/02/17 05:15 Carbon Dioxide 24 mmol/L (22-30) 11/02/17 05:15 Anion Gap 18 mmol/L 11/02/17 05:15 BUN 6 mg/dL (9-20) L 11/02/17 05:15 Creatinine 0.6 mg/dL (0.8-1.5) L 11/02/17 05:15 Estimated GFR > 60 ml/min 11/02/17 05:15 BUN/Creatinine Ratio 10 % 11/02/17 05:15 Glucose 91 mg/dL (75-100) 11/02/17 05:15 Calcium 9.4 mg/dL (8.4-10.2) 11/02/17 05:15 Total Bilirubin 1.00 mg/dL (0.1-1.2) 11/02/17 05:15 Direct Bilirubin 0.4 mg/dL (0-0.2) H 11/02/17 05:15 Indirect Bilirubin 0.6 mg/dL 11/02/17 05:15 AST 98 units/L (5-40) H 11/02/17 05:15 ALT 206 units/L (7-56) H 11/02/17 05:15 Alkaline Phosphatase 162 units/L (35-129) H 11/02/17 05:15 Total Protein 7.2 g/dL (6.3-8.2) 11/02/17 05:15 Albumin 3.6 g/dL (3.9-5) L 11/02/17 05:15 Albumin/Globulin Ratio 1.0 % 11/02/17 05:15 Lipase 22 units/L (13-60) 10/30/17 06:09 Urine Color Yellow (Yellow) 10/30/17 07:17 Urine Turbidity Clear (Clear) 10/30/17 07:17 Urine pH 7.0 (5.0-7.0) 10/30/17 07:17 Ur Specific [place] 1.017 (1.003-1.030) 10/30/17 07:17 Urine Protein 100 mg/dl mg/dL (Negative) 10/30/17 07:17 Urine Glucose (UA) Neg mg/dL (Negative) 10/30/17 07:17 Urine Ketones Neg mg/dL (Negative) 10/30/17 07:17 Urine Blood Neg (Negative) 10/30/17 07:17 Urine Nitrite Neg (Negative) 10/30/17 07:17 Urine Bilirubin Neg (Negative) 10/30/17 07:17 Urine Urobilinogen < 2.0 mg/dL (<2.0) 10/30/17 07:17 Ur Leukocyte Esterase Neg (Negative) 10/30/17 07:17 Urine WBC (Auto) 1.0 /HPF (0.0-6.0) 10/30/17 07:17 Urine RBC (Auto) 17.0 /HPF (0.0-6.0) 10/30/17 07:17 U Epithel Cells (Auto) < 1.0 /HPF (0-13.0) 10/30/17 07:17 Urine Mucus Few /HPF 10/30/17 07:17
[2017-11-02] MEDS: MORPHINE IV PRN ×2 (17:37→21:19)
--- NOTE | 2017-11-02 17:44 | Gastroenterology Progress Note ---
Assessment and Plan - Patient Problems (1) Acute cholecystitis Current Visit: Yes Status: Acute Plan to address problem: - Will recheck LFTs tomorrow; no gross stone on MRCP and patient clinically improved. - If acute worsening, will get ERCP. Subjective Date of service: 11/02/17 Principal diagnosis: Jaundice, acute cholecystitis Interval history: The patient is resting after his CCY. He has no severe pain, N/V, or fevers. Tolerating clears. Objective - Constitutional Vitals: Temp Pulse Resp BP Pulse Ox 99 F 93 H 18 154/105 96 11/02/17 15:45 11/02/17 15:45 11/02/17 15:45 11/02/17 15:45 11/02/17 15:45 General appearance: no acute distress - EENT Eyes: PERRL, EOM intact - Neck Neck: supple - Respiratory Respiratory: bilateral: CTA - Cardiovascular Rhythm: regular Heart Sounds: Present: S1 & S2 - Gastrointestinal General gastrointestinal: Present: soft, tender (appropriate) - Labs CBC & Chem 7: 11/01/17 04:34 11/02/17 05:15 Labs: Laboratory Results - last 24 hr 11/02/17 05:15 Sodium 139 Potassium 3.6 Chloride 100.8 Carbon Dioxide 24 Anion Gap 18 BUN 6 L Creatinine 0.6 L Estimated GFR > 60 BUN/Creatinine Ratio 10 Glucose 91 Calcium 9.4 Total Bilirubin 1.00 Direct Bilirubin 0.4 H Indirect Bilirubin 0.6 AST 98 H ALT 206 H Alkaline Phosphatase 162 H Total Protein 7.2 Albumin 3.6 L Albumin/Globulin Ratio 1.0
[2017-11-03] MEDS: MORPHINE IV PRN ×3 (04:15→21:38)
[2017-11-03] MEDS: ZOSYN/NS 4.5GM/100ML 4.5 GM/100 ML VIAL IV SCH ×3 (05:02→21:38)
[2017-11-03 06:07] LABS: Alanine Aminotransferase 153 units/L (7-56); Albumin 3.7 g/dL (3.9-5); BUN/Creatinine Ratio 13; Bilirubin,Direct 0.3 mg/dL (0-0.2); Blood Urea Nitrogen 9 mg/dL (9-20); Hemolysis Index 5
[2017-11-03 06:43] LABS: Calcium 9.4 mg/dL (8.4-10.2)
[2017-11-03] MEDS ORDERED: K-DUR PO ONE (11:30)
--- NOTE | 2017-11-03 11:51 | Progress Note ---
Assessment and Plan 47-year-old male with 1. acute gangrenous cholecystitis status post laparoscopic cholecystectomy. Postoperative day 1 2. HTN 3. Hypoxia, Low puse ox - likely secondary to congestion and post op 1. adv to reg diet 2. dc IVF 3. Incentive spirometry. I counseled the patient and had him demonstrate using the incentive spirometer. 4. By mouth pain control 5. Afrin nasal spray and Claritin for nasal congestion 6. Needs BP control. Per the patient's daughter he has not seen a doctor. He likely has undiagnosed hypertension. I discussed this with Dr. Sarah. 7. DVT prophylaxis 8. OOB, ambulate 9. wean O2 Subjective Date of service: 11/03/17 Narrative: Patient seen and examined. He complains of abdominal pain in the right upper quadrant near his incisions. She has not had any nausea or emesis. He has tolerated a clear liquid diet without difficulty. He is an relating to and from the restroom. He complains of nasal and head congestion as well as cough which is not productive. No fevers, chills. Objective Vital Signs - 12hr 11/03/17 11/03/17 11/03/17 03:53 08:00 10:00 Temperature 99.5 F 98.9 F Pulse Rate 86 94 H Respiratory 20 20 Rate Blood Pressure 172/116 Blood Pressure 166/106 [Left] O2 Sat by Pulse 94 95 95 Oximetry - General physical appearance Narrative Exam: General: Awake, alert, oriented 3. No apparent distress ENT: No conjunctival pallor or scleral icterus CV: S1, S2 present Respiratory: No audible wheezes Abdomen: Soft, nondistended, positive tenderness to palpation near incisions. Incisions are clean, dry, intact Extremities: No clubbing, cyanosis, edema - Labs 11/01/17 04:34 11/03/17 Unknown Diabetes panel 11/03/17 Range/Units Unknown Sodium 138 (137-145) mmol/L Potassium 3.4 L (3.6-5.0) mmol/L Chloride 99.9 (98-107) mmol/L Carbon Dioxide 25 (22-30) mmol/L BUN 9 (9-20) mg/dL Creatinine 0.7 L (0.8-1.5) mg/dL Glucose 114 H (75-100) mg/dL Calcium 9.4 (8.4-10.2) mg/dL AST 54 H (5-40) units/L ALT 153 H (7-56) units/L Alkaline Phosphatase 155 H (35-129) units/L Total Protein 7.0 (6.3-8.2) g/dL Albumin 3.7 L (3.9-5) g/dL Calcium panel 11/03/17 Range/Units Unknown Calcium 9.4 (8.4-10.2) mg/dL Albumin 3.7 L (3.9-5) g/dL Pituitary panel 11/03/17 Range/Units Unknown Sodium 138 (137-145) mmol/L Potassium 3.4 L (3.6-5.0) mmol/L Chloride 99.9 (98-107) mmol/L Carbon Dioxide 25 (22-30) mmol/L BUN 9 (9-20) mg/dL Creatinine 0.7 L (0.8-1.5) mg/dL Glucose 114 H (75-100) mg/dL Calcium 9.4 (8.4-10.2) mg/dL Adrenal panel 11/03/17 Range/Units Unknown Sodium 138 (137-145) mmol/L Potassium 3.4 L (3.6-5.0) mmol/L Chloride 99.9 (98-107) mmol/L Carbon Dioxide 25 (22-30) mmol/L BUN 9 (9-20) mg/dL Creatinine 0.7 L (0.8-1.5) mg/dL Glucose 114 H (75-100) mg/dL Calcium 9.4 (8.4-10.2) mg/dL Total Bilirubin 0.50 (0.1-1.2) mg/dL AST 54 H (5-40) units/L ALT 153 H (7-56) units/L Alkaline Phosphatase 155 H (35-129) units/L Total Protein 7.0 (6.3-8.2) g/dL Albumin 3.7 L (3.9-5) g/dL
[2017-11-03] MEDS ORDERED: CLARITIN-D 24HR PO SCH (12:00)
[2017-11-03] MEDS: ZOFRAN IV PRN (12:41)
[2017-11-03] MEDS: LOVENOX SUB-Q SCH (12:46)
[2017-11-03] MEDS: TYLENOL PO PRN ×2 (12:49→21:38)
[2017-11-03] MEDS ORDERED: TORADOL IV PRN (13:17)
[2017-11-03] MEDS ORDERED: APRESOLINE IV PRN (14:13)
--- NOTE | 2017-11-03 14:49 | Progress Note ---
Assessment and Plan Assessment and plan: 47m with RUQ pain x 1 day acute gangrenous cholecystitis for lap sue today Sepsis continue sepsis pathway, should resolve with lap sue DVT ppx lovenox History Interval history: Review of systems Constitutional: had fevers, no malaise, no joint pains CVS: No chest pain, no orthopnea, no dyspnea on exertion, no pedal edema GI: Denies diarrhea, still complaining of right upper quadrant pain with mild nausea. Respiratory: No shortness of breath, no wheezing, no coughing Hospitalist Physical - Physical exam Narrative exam: General.: Appears well, no distress, nontoxic HEENT: Moist mucous membranes, extraocular muscles intact, no lymphadenopathy Neck: supple Cardiac: S1-S2 heard Lungs: clear to auscultation bilaterally Abdomen: Right upper quadrant tenderness. Extremities: no edema clubbing or cyanosis Skin: no rash or lesions Neurologic: no gross focal deficits Psych: appropriate behavior, appropriate mood, corporative, judgment intact - Constitutional Vitals: Temp Pulse Resp BP Pulse Ox 102.8 F H 104 H 20 157/106 94 11/03/17 12:00 11/03/17 12:00 11/03/17 12:00 11/03/17 12:00 11/03/17 12:00 Results - Labs CBC & Chem 7: 11/01/17 04:34 11/04/17 09:30 Labs: Laboratory Last Values WBC 9.2 K/mm3 (4.5-11.0) 11/01/17 04:34 RBC 4.78 M/mm3 (3.65-5.03) 11/01/17 04:34 Hgb 14.7 gm/dl (11.8-15.2) 11/01/17 04:34 Hct 43.2 % (35.5-45.6) 11/01/17 04:34 MCV 90 fl (84-94) 11/01/17 04:34 MCH 31 pg (28-32) 11/01/17 04:34 MCHC 34 % (32-34) 11/01/17 04:34 RDW 13.0 % (13.2-15.2) L 11/01/17 04:34 Plt Count 203 K/mm3 (140-440) 11/01/17 04:34 Lymph % (Auto) 13.8 % (13.4-35.0) 11/01/17 04:34 [place] % (Auto) 8.7 % (0.0-7.3) H 11/01/17 04:34 Eos % (Auto) 1.0 % (0.0-4.3) 11/01/17 04:34 Baso % (Auto) 0.6 % (0.0-1.8) 11/01/17 04:34 Lymph # 1.3 K/mm3 (1.2-5.4) 11/01/17 04:34 [place] # 0.8 K/mm3 (0.0-0.8) 11/01/17 04:34 Eos # 0.1 K/mm3 (0.0-0.4) 11/01/17 04:34 Baso # 0.1 K/mm3 (0.0-0.1) 11/01/17 04:34 Add Manual Diff Complete 10/30/17 06:09 Total Counted 100 10/30/17 06:09 Seg Neutrophils % 75.9 % (40.0-70.0) H 11/01/17 04:34 Seg Neuts % (Manual) 89.0 % (40.0-70.0) H 10/30/17 06:09 Band Neutrophils % 0 % 10/30/17 06:09 Lymphocytes % (Manual) 9.0 % (13.4-35.0) L 10/30/17 06:09 Reactive Lymphs % (Man) 0 % 10/30/17 06:09 Monocytes % (Manual) 2.0 % (0.0-7.3) 10/30/17 06:09 Eosinophils % (Manual) 0 % (0.0-4.3) 10/30/17 06:09 Basophils % (Manual) 0 % (0.0-1.8) 10/30/17 06:09 Metamyelocytes % 0 % 10/30/17 06:09 Myelocytes % 0 % 10/30/17 06:09 Promyelocytes % 0 % 10/30/17 06:09 Blast Cells % 0 % 10/30/17 06:09 Nucleated RBC % Not Reportable 10/30/17 06:09 Seg Neutrophils # 6.9 K/mm3 (1.8-7.7) 11/01/17 04:34 Seg Neutrophils # Man 14.9 K/mm3 (1.8-7.7) H 10/30/17 06:09 Band Neutrophils # 0.0 K/mm3 10/30/17 06:09 Lymphocytes # (Manual) 1.5 K/mm3 (1.2-5.4) 10/30/17 06:09 Abs React Lymphs (Man) 0.0 K/mm3 10/30/17 06:09 Monocytes # (Manual) 0.3 K/mm3 (0.0-0.8) 10/30/17 06:09 Eosinophils # (Manual) 0.0 K/mm3 (0.0-0.4) 10/30/17 06:09 Basophils # (Manual) 0.0 K/mm3 (0.0-0.1) 10/30/17 06:09 Metamyelocytes # 0.0 K/mm3 10/30/17 06:09 Myelocytes # 0.0 K/mm3 10/30/17 06:09 Promyelocytes # 0.0 K/mm3 10/30/17 06:09 Blast Cells # 0.0 K/mm3 10/30/17 06:09 WBC Morphology Not Reportable 10/30/17 06:09 Hypersegmented Neuts Not Reportable 10/30/17 06:09 Hyposegmented Neuts Not Reportable 10/30/17 06:09 Hypogranular Neuts Not Reportable 10/30/17 06:09 Smudge Cells Not Reportable 10/30/17 06:09 Toxic Granulation Few 10/30/17 06:09 Toxic Vacuolation Not Reportable 10/30/17 06:09 Dohle Bodies Not Reportable 10/30/17 06:09 Pelger-Huet Anomaly Not Reportable 10/30/17 06:09 Indu Rods Not Reportable 10/30/17 06:09 Platelet Estimate Cons 10/30/17 06:09 Clumped Platelets Not Reportable 10/30/17 06:09 Plt Clumps, EDTA Not Reportable 10/30/17 06:09 Large Platelets Not Reportable 10/30/17 06:09 Giant Platelets Not Reportable 10/30/17 06:09 Platelet Satelliting Not Reportable 10/30/17 06:09 Plt Morphology Comment Not Reportable 10/30/17 06:09 RBC Morphology Not Reportable 10/30/17 06:09 Dimorphic RBCs Not Reportable 10/30/17 06:09 Polychromasia Not Reportable 10/30/17 06:09 Hypochromasia Not Reportable 10/30/17 06:09 Poikilocytosis Not Reportable 10/30/17 06:09 Anisocytosis 1+ 10/30/17 06:09 Microcytosis Not Reportable 10/30/17 06:09 Macrocytosis Not Reportable 10/30/17 06:09 Spherocytes Not Reportable 10/30/17 06:09 Pappenheimer Bodies Not Reportable 10/30/17 06:09 Sickle Cells Not Reportable 10/30/17 06:09 Target Cells Not Reportable 10/30/17 06:09 Tear Drop Cells Not Reportable 10/30/17 06:09 Ovalocytes Not Reportable 10/30/17 06:09 Helmet Cells Not Reportable 10/30/17 06:09 Ansari-[place] Torres Bodies Not Reportable 10/30/17 06:09 [place] Rings Not Reportable 10/30/17 06:09 [place] Cells Not Reportable 10/30/17 06:09 Bite Cells Not Reportable 10/30/17 06:09 Crenated Cell Not Reportable 10/30/17 06:09 Elliptocytes Not Reportable 10/30/17 06:09 Acanthocytes (Spur) Not Reportable 10/30/17 06:09 Rouleaux Not Reportable 10/30/17 06:09 Hemoglobin C Crystals Not Reportable 10/30/17 06:09 Schistocytes Not Reportable 10/30/17 06:09 Malaria parasites Not Reportable 10/30/17 06:09 Matthieu Bodies Not Reportable 10/30/17 06:09 Hem Pathologist Commnt No 10/30/17 06:09 Sodium 138 mmol/L (137-145) 11/03/17 Unknown Potassium 3.4 mmol/L (3.6-5.0) L 11/03/17 Unknown Chloride 99.9 mmol/L (98-107) 11/03/17 Unknown Carbon Dioxide 25 mmol/L (22-30) 11/03/17 Unknown Anion Gap 17 mmol/L 11/03/17 Unknown BUN 9 mg/dL (9-20) 11/03/17 Unknown Creatinine 0.7 mg/dL (0.8-1.5) L 11/03/17 Unknown Estimated GFR > 60 ml/min 11/03/17 Unknown BUN/Creatinine Ratio 13 % 11/03/17 Unknown Glucose 114 mg/dL (75-100) H 11/03/17 Unknown Calcium 9.4 mg/dL (8.4-10.2) 11/03/17 Unknown Total Bilirubin 0.50 mg/dL (0.1-1.2) 11/03/17 Unknown Direct Bilirubin 0.3 mg/dL (0-0.2) H 11/03/17 Unknown Indirect Bilirubin 0.2 mg/dL 11/03/17 Unknown AST 54 units/L (5-40) H 11/03/17 Unknown ALT 153 units/L (7-56) H 11/03/17 Unknown Alkaline Phosphatase 155 units/L (35-129) H 11/03/17 Unknown Total Protein 7.0 g/dL (6.3-8.2) 11/03/17 Unknown Albumin 3.7 g/dL (3.9-5) L 11/03/17 Unknown Albumin/Globulin Ratio 1.1 % 11/03/17 Unknown Lipase 22 units/L (13-60) 10/30/17 06:09 Urine Color Yellow (Yellow) 10/30/17 07:17 Urine Turbidity Clear (Clear) 10/30/17 07:17 Urine pH 7.0 (5.0-7.0) 10/30/17 07:17 Ur Specific [place] 1.017 (1.003-1.030) 10/30/17 07:17 Urine Protein 100 mg/dl mg/dL (Negative) 10/30/17 07:17 Urine Glucose (UA) Neg mg/dL (Negative) 10/30/17 07:17 Urine Ketones Neg mg/dL (Negative) 10/30/17 07:17 Urine Blood Neg (Negative) 10/30/17 07:17 Urine Nitrite Neg (Negative) 10/30/17 07:17 Urine Bilirubin Neg (Negative) 10/30/17 07:17 Urine Urobilinogen < 2.0 mg/dL (<2.0) 10/30/17 07:17 Ur Leukocyte Esterase Neg (Negative) 10/30/17 07:17 Urine WBC (Auto) 1.0 /HPF (0.0-6.0) 01/05/18 07:17 Urine RBC (Auto) 17.0 /HPF (0.0-6.0) 10/30/17 07:17 U Epithel Cells (Auto) < 1.0 /HPF (0-13.0) 10/30/17 07:17 Urine Mucus Few /HPF 10/30/17 07:17
[2017-11-03] MEDS: NACL 0.45% 1000 ML 1,000 ML IV SCH (15:51)
[2017-11-03] MEDS: HCTZ PO SCH (15:51)
[2017-11-03] MEDS: NORVASC PO SCH (15:51)
[2017-11-03] MEDS: CLARITIN PO SCH (15:51)
[2017-11-03] MEDS: AFRIN NS SCH (15:57)
--- NOTE | 2017-11-03 18:49 | Gastroenterology Progress Note ---
Assessment and Plan - Patient Problems (1) Acute cholecystitis Current Visit: Yes Status: Acute Plan to address problem: - LFTs improved; doubt retained stone/need for ERCP. - Will sign off; please call if needed. Subjective Date of service: 11/03/17 Principal diagnosis: Jaundice, acute cholecystitis Interval history: The patient is clinically improved. No N/V with liquid diet, and denies severe abdominal pain. No fevers/chills today. Objective - Constitutional Vitals: Temp Pulse Resp BP Pulse Ox 99.8 F H 105 H 20 152/105 92 11/03/17 16:00 11/03/17 16:00 11/03/17 16:00 11/03/17 16:00 11/03/17 16:00 General appearance: no acute distress - Neck Neck: supple, normal ROM - Respiratory Respiratory effort: normal Respiratory: bilateral: CTA - Cardiovascular Rhythm: regular Heart Sounds: Present: S1 & S2 - Gastrointestinal General gastrointestinal: Present: soft, tender (Appropriate post-op), non- distended - Labs CBC & Chem 7: 11/01/17 04:34 11/03/17 Unknown Labs: Laboratory Results - last 24 hr 11/03/17 Unknown Sodium 138 Potassium 3.4 L Chloride 99.9 Carbon Dioxide 25 Anion Gap 17 BUN 9 Creatinine 0.7 L Estimated GFR > 60 BUN/Creatinine Ratio 13 Glucose 114 H Calcium 9.4 Total Bilirubin 0.50 Direct Bilirubin 0.3 H Indirect Bilirubin 0.2 AST 54 H ALT 153 H Alkaline Phosphatase 155 H Total Protein 7.0 Albumin 3.7 L Albumin/Globulin Ratio 1.1
[2017-11-04] MEDS: TYLENOL PO PRN ×2 (01:42→20:46)
[2017-11-04] MEDS: AFRIN NS SCH ×2 (01:43→11:48)
[2017-11-04] MEDS: ZOSYN/NS 4.5GM/100ML 4.5 GM/100 ML VIAL IV SCH ×3 (05:31→21:35)
[2017-11-04 10:04] LABS: Alanine Aminotransferase 120 units/L (7-56); Albumin 3.6 g/dL (3.9-5); BUN/Creatinine Ratio 9; Blood Urea Nitrogen 7 mg/dL (9-20); Calcium 9.6 mg/dL (8.4-10.2); Hemolysis Index 2
[2017-11-04] MEDS ORDERED: K-DUR PO ONE (10:30)
--- NOTE | 2017-11-04 11:38 | Progress Note ---
Assessment and Plan 47-year-old male with 1. acute gangrenous cholecystitis status post laparoscopic cholecystectomy. Postoperative day 1 2. HTN 3. Hypoxia, Low puse ox - likely secondary to congestion and post op 4. fever - likely post operative atelectasis Plan: 1. reg diet 2. gentle IVF, patient encourage to increase PO intake 3. Incentive spirometry 4. By mouth pain control 5. Afrin nasal spray and Claritin for nasal congestion 6. BP control per medical team 8. OOB, ambulate 9. wean O2 - I placed patient on NC, will monitor pulse ox and wean to RA. 10. monitor for fevers. If afebrile, off O2 and stable from medical standpoint, may be discharged to home today. Subjective Date of service: 11/04/17 Narrative: Patient seen and examined at bedside. He states his abdominal pain is improved. He has been ambulating and using his incentive spirometer. He is tolerating a regular diet without nausea or vomiting. He has been passing flatus but has not had a bowel movement yet.. His congestion is also mildly improved. He had a MAXIMUM TEMPERATURE of 102.7 yesterday evening. No fever since then. Objective Vital Signs - 12hr 11/03/17 11/04/17 11/04/17 23:58 00:07 01:42 Temperature 99.4 F Pulse Rate 87 88 Respiratory 20 18 Rate Blood Pressure Blood Pressure 133/93 [Left] O2 Sat by Pulse 92 91 Oximetry 11/04/17 11/04/17 11/04/17 05:04 05:05 05:06 Temperature 98.0 F Pulse Rate 66 68 82 Respiratory 20 Rate Blood Pressure 153/104 146/98 Blood Pressure [Left] O2 Sat by Pulse 96 94 92 Oximetry 11/04/17 11/04/17 07:54 08:54 Temperature 98.8 F Pulse Rate 86 Respiratory 20 Rate Blood Pressure Blood Pressure 153/106 [Left] O2 Sat by Pulse 94 96 Oximetry - General physical appearance Narrative Exam: General: Awake, alert, oriented 3. No apparent distress HEENT: No scleral icterus or conjunctival pallor CV: S1, S2 present Respiratory: Clear to auscultation bilaterally, no wheezes, rales, rhonchi Abdomen: Soft, nondistended, positive tenderness to palpation in the right upper quadrant near incisions. All incisions are clean, dry, intact. Extremities: No clubbing, cyanosis, edema - Labs 11/01/17 04:34 11/04/17 09:30 Diabetes panel 11/04/17 Range/Units 09:30 Sodium 136 L (137-145) mmol/L Potassium 3.5 L (3.6-5.0) mmol/L Chloride 94.7 L (98-107) mmol/L Carbon Dioxide 32 H D (22-30) mmol/L BUN 7 L (9-20) mg/dL Creatinine 0.8 (0.8-1.5) mg/dL Glucose 142 H (75-100) mg/dL Calcium 9.6 (8.4-10.2) mg/dL AST 48 H (5-40) units/L ALT 120 H (7-56) units/L Alkaline Phosphatase 145 H (35-129) units/L Total Protein 7.1 (6.3-8.2) g/dL Albumin 3.6 L (3.9-5) g/dL Calcium panel 11/04/17 Range/Units 09:30 Calcium 9.6 (8.4-10.2) mg/dL Albumin 3.6 L (3.9-5) g/dL Pituitary panel 11/04/17 Range/Units 09:30 Sodium 136 L (137-145) mmol/L Potassium 3.5 L (3.6-5.0) mmol/L Chloride 94.7 L (98-107) mmol/L Carbon Dioxide 32 H D (22-30) mmol/L BUN 7 L (9-20) mg/dL Creatinine 0.8 (0.8-1.5) mg/dL Glucose 142 H (75-100) mg/dL Calcium 9.6 (8.4-10.2) mg/dL Adrenal panel 11/04/17 Range/Units 09:30 Sodium 136 L (137-145) mmol/L Potassium 3.5 L (3.6-5.0) mmol/L Chloride 94.7 L (98-107) mmol/L Carbon Dioxide 32 H D (22-30) mmol/L BUN 7 L (9-20) mg/dL Creatinine 0.8 (0.8-1.5) mg/dL Glucose 142 H (75-100) mg/dL Calcium 9.6 (8.4-10.2) mg/dL Total Bilirubin 0.60 (0.1-1.2) mg/dL AST 48 H (5-40) units/L ALT 120 H (7-56) units/L Alkaline Phosphatase 145 H (35-129) units/L Total Protein 7.1 (6.3-8.2) g/dL Albumin 3.6 L (3.9-5) g/dL
[2017-11-04] MEDS: NORVASC PO SCH (11:39)
[2017-11-04] MEDS: LOVENOX SUB-Q SCH (11:39)
[2017-11-04] MEDS: CLARITIN PO SCH (11:39)
[2017-11-04] MEDS: HCTZ PO SCH (11:39)
[2017-11-04] MEDS: PERCOCET 5/325 PO PRN (11:48)
--- NOTE | 2017-11-04 12:23 | Discharge Summary ---
<MARBELLA VELIZ - Last Filed: 11/04/17 15:08> Providers - Providers Date of Admission: 10/31/17 02:51 Attending physician: NIGEL CLARK MD 10/31/17 00:14 Consult to Physician [CONS] Urgent Consulting Provider: MARBELLA VELIZ Reason For Exam: symptomatic cholelithiasis Place consult to:: phone Notified:: y 10/31/17 11:13 Consult to Physician [CONS] Routine Consulting Provider: GARCIA BAEZ Reason For Exam: elevated bilirubin, suspect choledoco Place consult to:: Marissa Notified:: yes Phone number called:: [phone] If yes, spoke with:: Flaquita Time called:: 12:30 Primary care physician: SUDARSHAN MANJARREZ Hospitalization Condition: Fair Disposition: DC-01 TO HOME OR SELFCARE Exam - Constitutional Vitals: Temp Pulse Resp BP Pulse Ox 99 F 99 H 18 153/110 92 11/04/17 12:00 11/04/17 12:00 11/04/17 12:00 11/04/17 12:00 11/04/17 12:00 Plan Activity: other (no heavy lifting greater than 15 lbs for the next 2 weeks[address] if taking narcotic pain medications.) Diet: regular Wound: open to air (may shower, no baths/hottubs/pools until incisions are healed. Pat incisions dry, do not scrub.), other Follow up with: SUDARSHAN MANJARREZ MD [Primary Care Provider] - 3-5 Days MARBELLA VELIZ DO [Staff Physician] - 14 Days Prescriptions: amLODIPine [Norvasc] 10 mg PO QDAY #30 tablet Amoxicillin/Potassium Clav [Augmentin 875-125 Tablet] 1 each PO Q12H #14 tablet Hydrochlorothiazide [HCTZ] 25 mg PO QDAY #30 tablet Lisinopril [Zestril TAB] 20 mg PO QDAY #30 tablet Loratadine [Claritin] 10 mg PO QDAY #30 tablet oxyCODONE /ACETAMINOPHEN [Percocet 5/325 mg] 2 tab PO Q6H PRN #20 tablet PRN Reason: Pain, Moderate (4-6) <NIGEL CLARK - Last Filed: 11/05/17 16:08> Providers - Providers Date of Admission: 10/31/17 02:51 Attending physician: NIGEL CLARK MD 10/31/17 00:14 Consult to Physician [CONS] Urgent Consulting Provider: MARBELLA VELIZ Reason For Exam: symptomatic cholelithiasis Place consult to:: phone Notified:: y 10/31/17 11:13 Consult to Physician [CONS] Routine Consulting Provider: GARCIA BAEZ Reason For Exam: elevated bilirubin, suspect choledoco Place consult to:: Marissa Notified:: yes Phone number called:: [phone] If yes, spoke with:: Flaquita Time called:: 12:30 Primary care physician: SUDARSHAN MANJARREZ Hospitalization Hospital course: 47-year-old male with past medical history of hypertension who was not on any medications to have a PCP. Presented with right upper quadrant pain and fevers. The sons have acute necrotic cholecystitis. He went on to have laparoscopic cholecystectomy. He received IV antibiotics. He was also started on a regimen of blood pressure medications. He clinically improved and was subsequently discharged to blood pressure medications and an oral antibiotic course Diagnoses Sepsis Acute gangrenous cholecystitis Hypertensive urgency Time spent for discharge: 33 minutes Core Measure Documentation - Palliative Care Palliative Care/ Comfort Measures: Not Applicable - Core Measures Any of the following diagnoses?: none Exam - Physical Exam Narrative exam: General.: Appears well, no distress, nontoxic HEENT: Moist mucous membranes, extraocular muscles intact, no lymphadenopathy Neck: supple Cardiac: S1-S2 heard Lungs: clear to auscultation bilaterally Abdomen: Right upper quadrant tenderness. Extremities: no edema clubbing or cyanosis Skin: no rash or lesions Neurologic: no gross focal deficits Psych: appropriate behavior, appropriate mood, corporative, judgment intact - Constitutional Vitals: Temp Pulse Resp BP Pulse Ox 99 F 99 H 18 153/110 92 11/04/17 12:00 11/04/17 12:00 11/04/17 12:00 11/04/17 12:00 11/04/17 12:00
--- NOTE | 2017-11-04 17:57 | Progress Note ---
Assessment and Plan Assessment and plan: 47m with RUQ pain x 1 day acute gangrenous cholecystitis sp lap sue, was gangrenous - Sepsis continue sepsis pathway, should resolve sp lap sue continue abx, check blood cx likely will be dc on augmentin for 7 days DVT ppx lovenox History Interval history: Review of systems Constitutional: had fevers, no malaise, no joint pains CVS: No chest pain, no orthopnea, no dyspnea on exertion, no pedal edema GI: Denies diarrhea, still complaining of right upper quadrant pain with mild nausea. Respiratory: No shortness of breath, no wheezing, no coughing Hospitalist Physical - Physical exam Narrative exam: General.: Appears well, no distress, nontoxic HEENT: Moist mucous membranes, extraocular muscles intact, no lymphadenopathy Neck: supple Cardiac: S1-S2 heard Lungs: clear to auscultation bilaterally Abdomen: Right upper quadrant tenderness. Extremities: no edema clubbing or cyanosis Skin: no rash or lesions Neurologic: no gross focal deficits Psych: appropriate behavior, appropriate mood, corporative, judgment intact - Constitutional Vitals: Temp Pulse Resp BP Pulse Ox 101.1 F H 109 H 18 147/102 85 11/04/17 16:00 11/04/17 16:00 11/04/17 16:00 11/04/17 16:00 11/04/17 16:00 Results - Labs CBC & Chem 7: 11/01/17 04:34 11/04/17 09:30 Labs: Laboratory Last Values WBC 9.2 K/mm3 (4.5-11.0) 11/01/17 04:34 RBC 4.78 M/mm3 (3.65-5.03) 11/01/17 04:34 Hgb 14.7 gm/dl (11.8-15.2) 11/01/17 04:34 Hct 43.2 % (35.5-45.6) 11/01/17 04:34 MCV 90 fl (84-94) 11/01/17 04:34 MCH 31 pg (28-32) 11/01/17 04:34 MCHC 34 % (32-34) 11/01/17 04:34 RDW 13.0 % (13.2-15.2) L 11/01/17 04:34 Plt Count 203 K/mm3 (140-440) 11/01/17 04:34 Lymph % (Auto) 13.8 % (13.4-35.0) 11/01/17 04:34 [place] % (Auto) 8.7 % (0.0-7.3) H 11/01/17 04:34 Eos % (Auto) 1.0 % (0.0-4.3) 11/01/17 04:34 Baso % (Auto) 0.6 % (0.0-1.8) 11/01/17 04:34 Lymph # 1.3 K/mm3 (1.2-5.4) 11/01/17 04:34 [place] # 0.8 K/mm3 (0.0-0.8) 11/01/17 04:34 Eos # 0.1 K/mm3 (0.0-0.4) 11/01/17 04:34 Baso # 0.1 K/mm3 (0.0-0.1) 11/01/17 04:34 Add Manual Diff Complete 10/30/17 06:09 Total Counted 100 10/30/17 06:09 Seg Neutrophils % 75.9 % (40.0-70.0) H 11/01/17 04:34 Seg Neuts % (Manual) 89.0 % (40.0-70.0) H 10/30/17 06:09 Band Neutrophils % 0 % 10/30/17 06:09 Lymphocytes % (Manual) 9.0 % (13.4-35.0) L 10/30/17 06:09 Reactive Lymphs % (Man) 0 % 10/30/17 06:09 Monocytes % (Manual) 2.0 % (0.0-7.3) 10/30/17 06:09 Eosinophils % (Manual) 0 % (0.0-4.3) 10/30/17 06:09 Basophils % (Manual) 0 % (0.0-1.8) 10/30/17 06:09 Metamyelocytes % 0 % 10/30/17 06:09 Myelocytes % 0 % 10/30/17 06:09 Promyelocytes % 0 % 10/30/17 06:09 Blast Cells % 0 % 10/30/17 06:09 Nucleated RBC % Not Reportable 10/30/17 06:09 Seg Neutrophils # 6.9 K/mm3 (1.8-7.7) 11/01/17 04:34 Seg Neutrophils # Man 14.9 K/mm3 (1.8-7.7) H 10/30/17 06:09 Band Neutrophils # 0.0 K/mm3 10/30/17 06:09 Lymphocytes # (Manual) 1.5 K/mm3 (1.2-5.4) 10/30/17 06:09 Abs React Lymphs (Man) 0.0 K/mm3 10/30/17 06:09 Monocytes # (Manual) 0.3 K/mm3 (0.0-0.8) 10/30/17 06:09 Eosinophils # (Manual) 0.0 K/mm3 (0.0-0.4) 10/30/17 06:09 Basophils # (Manual) 0.0 K/mm3 (0.0-0.1) 10/30/17 06:09 Metamyelocytes # 0.0 K/mm3 10/30/17 06:09 Myelocytes # 0.0 K/mm3 10/30/17 06:09 Promyelocytes # 0.0 K/mm3 10/30/17 06:09 Blast Cells # 0.0 K/mm3 10/30/17 06:09 WBC Morphology Not Reportable 10/30/17 06:09 Hypersegmented Neuts Not Reportable 10/30/17 06:09 Hyposegmented Neuts Not Reportable 10/30/17 06:09 Hypogranular Neuts Not Reportable 10/30/17 06:09 Smudge Cells Not Reportable 10/30/17 06:09 Toxic Granulation Few 10/30/17 06:09 Toxic Vacuolation Not Reportable 10/30/17 06:09 Dohle Bodies Not Reportable 10/30/17 06:09 Pelger-Huet Anomaly Not Reportable 10/30/17 06:09 Indu Rods Not Reportable 10/30/17 06:09 Platelet Estimate Cons 10/30/17 06:09 Clumped Platelets Not Reportable 10/30/17 06:09 Plt Clumps, EDTA Not Reportable 10/30/17 06:09 Large Platelets Not Reportable 10/30/17 06:09 Giant Platelets Not Reportable 10/30/17 06:09 Platelet Satelliting Not Reportable 10/30/17 06:09 Plt Morphology Comment Not Reportable 10/30/17 06:09 RBC Morphology Not Reportable 10/30/17 06:09 Dimorphic RBCs Not Reportable 10/30/17 06:09 Polychromasia Not Reportable 10/30/17 06:09 Hypochromasia Not Reportable 10/30/17 06:09 Poikilocytosis Not Reportable 10/30/17 06:09 Anisocytosis 1+ 10/30/17 06:09 Microcytosis Not Reportable 10/30/17 06:09 Macrocytosis Not Reportable 10/30/17 06:09 Spherocytes Not Reportable 10/30/17 06:09 Pappenheimer Bodies Not Reportable 10/30/17 06:09 Sickle Cells Not Reportable 10/30/17 06:09 Target Cells Not Reportable 10/30/17 06:09 Tear Drop Cells Not Reportable 10/30/17 06:09 Ovalocytes Not Reportable 10/30/17 06:09 Helmet Cells Not Reportable 10/30/17 06:09 Ansari-Huslia Bodies Not Reportable 10/30/17 06:09 [place] Rings Not Reportable 10/30/17 06:09 Noah Cells Not Reportable 10/30/17 06:09 Bite Cells Not Reportable 10/30/17 06:09 Crenated Cell Not Reportable 10/30/17 06:09 Elliptocytes Not Reportable 10/30/17 06:09 Acanthocytes (Spur) Not Reportable 10/30/17 06:09 Rouleaux Not Reportable 10/30/17 06:09 Hemoglobin C Crystals Not Reportable 10/30/17 06:09 Schistocytes Not Reportable 10/30/17 06:09 Malaria parasites Not Reportable 10/30/17 06:09 Matthieu Bodies Not Reportable 10/30/17 06:09 Hem Pathologist Commnt No 10/30/17 06:09 Sodium 136 mmol/L (137-145) L 11/04/17 09:30 Potassium 3.5 mmol/L (3.6-5.0) L 11/04/17 09:30 Chloride 94.7 mmol/L (98-107) L 11/04/17 09:30 Carbon Dioxide 32 mmol/L (22-30) H D 11/04/17 09:30 Anion Gap 13 mmol/L 11/04/17 09:30 BUN 7 mg/dL (9-20) L 11/04/17 09:30 Creatinine 0.8 mg/dL (0.8-1.5) 11/04/17 09:30 Estimated GFR > 60 ml/min 11/04/17 09:30 BUN/Creatinine Ratio 9 % 11/04/17 09:30 Glucose 142 mg/dL (75-100) H 11/04/17 09:30 Calcium 9.6 mg/dL (8.4-10.2) 11/04/17 09:30 Total Bilirubin 0.60 mg/dL (0.1-1.2) 11/04/17 09:30 Direct Bilirubin 0.3 mg/dL (0-0.2) H 11/03/17 Unknown Indirect Bilirubin 0.2 mg/dL 11/03/17 Unknown AST 48 units/L (5-40) H 11/04/17 09:30 ALT 120 units/L (7-56) H 11/04/17 09:30 Alkaline Phosphatase 145 units/L (35-129) H 11/04/17 09:30 Total Protein 7.1 g/dL (6.3-8.2) 11/04/17 09:30 Albumin 3.6 g/dL (3.9-5) L 11/04/17 09:30 Albumin/Globulin Ratio 1.0 % 11/04/17 09:30 Lipase 22 units/L (13-60) 10/30/17 06:09 Urine Color Yellow (Yellow) 10/30/17 07:17 Urine Turbidity Clear (Clear) 10/30/17 07:17 Urine pH 7.0 (5.0-7.0) 10/30/17 07:17 Ur Specific [place] 1.017 (1.003-1.030) 10/30/17 07:17 Urine Protein 100 mg/dl mg/dL (Negative) 10/30/17 07:17 Urine Glucose (UA) Neg mg/dL (Negative) 10/30/17 07:17 Urine Ketones Neg mg/dL (Negative) 10/30/17 07:17 Urine Blood Neg (Negative) 10/30/17 07:17 Urine Nitrite Neg (Negative) 10/30/17 07:17 Urine Bilirubin Neg (Negative) 10/30/17 07:17 Urine Urobilinogen < 2.0 mg/dL (<2.0) 10/30/17 07:17 Ur Leukocyte Esterase Neg (Negative) 10/30/17 07:17 Urine WBC (Auto) 1.0 /HPF (0.0-6.0) 10/30/17 07:17 Urine RBC (Auto) 17.0 /HPF (0.0-6.0) 10/30/17 07:17 U Epithel Cells (Auto) < 1.0 /HPF (0-13.0) 10/30/17 07:17 Urine Mucus Few /HPF 10/30/17 07:17
[2017-11-05] MEDS: AFRIN NS SCH (00:37)
[2017-11-05] MEDS: PERCOCET 5/325 PO PRN ×2 (02:34→12:28)
[2017-11-05] MEDS: NACL 0.45% 1000 ML 1,000 ML IV SCH (02:34)
[2017-11-05] MEDS: ZOSYN/NS 4.5GM/100ML 4.5 GM/100 ML VIAL IV SCH (05:42)
[2017-11-05] MEDS: CLARITIN PO SCH (12:22)
[2017-11-05] MEDS: NORVASC PO SCH (12:22)
[2017-11-05] MEDS: HCTZ PO SCH (12:22)
[2017-11-05] MEDS: LOVENOX SUB-Q SCH (12:23)
--- NOTE | 2017-11-05 14:39 | Progress Note ---
Assessment and Plan 47-year-old male with 1. acute gangrenous cholecystitis status post laparoscopic cholecystectomy. Postoperative day 3 2. HTN 3. Hypoxia, Low puse ox - likely secondary to congestion and post op 4. fever - likely post operative atelectasis Plan: 1. reg diet 2. dc IVF 3. Incentive spirometry 4. By mouth pain control 5. Afrin nasal spray and Claritin for nasal congestion daily 6. BP control per medical team 8. OOB, ambulate 9. wean O2 - check Pulse ox on RA this PM. 10. monitor for fevers. If afebrile, off O2 and stable from medical standpoint, may be discharged to home today. 11. Patient to follow up in surgery office in 2 weeks Subjective Date of service: 11/05/17 Narrative: Patient seen and examined. He feels better today. He has been afebrile since yesterday evening. He is tolerating a regular diet. He is using his incentive spirometer and ambulating the hallways. Congestion is also improving slowly. He does state that his abdomen hurts when he coughs. He is sometimes bringing up greenish sputum. Objective Vital Signs - 12hr 11/05/17 11/05/17 11/05/17 04:46 06:58 09:51 Temperature 98.5 F 98.1 F Pulse Rate 77 74 Respiratory 16 20 Rate Blood Pressure 125/95 124/90 Blood Pressure [Left] O2 Sat by Pulse 97 96 94 Oximetry 11/05/17 11:54 Temperature 98.8 F Pulse Rate 105 H Respiratory 20 Rate Blood Pressure Blood Pressure 142/96 [Left] O2 Sat by Pulse 97 Oximetry - General physical appearance Narrative Exam: General: Awake, alert, oriented 3. CV: S1, S2 present respiratory: No audible wheezes Abdomen: Soft, appropriate tenderness to palpation near his incisions, nondistended. Incisions are clean, dry, intact Extremities: No clubbing, cyanosis, edema - Labs 11/01/17 04:34 11/04/17 09:30
[2017-11-05 16:00] VITALS: BP 129/93
== END 2017-11-05 17:35 | disposition home or self-care (01) | DRG 854 ==
LOC: ED 05:03 → 3B-SURG 10-31 02:51
PROVIDERS: ADMIT Internal Medicine; ATTEND Internal Medicine
PROC: 0FT44ZZ Resection of Gallbladder, Percutaneous Endoscopic Approach (ICD-10-PCS; principal; 2017-11-02)
DX: A41.9 Sepsis, unspecified organism (principal); K57.32 Diverticulitis of large intestine without perforation or abscess without bleeding; K80.42 Calculus of bile duct with acute cholecystitis without obstruction; R09.02 Hypoxemia; I10 Essential (primary) hypertension; I16.0 Hypertensive urgency
CPT/HCPCS: 36415; 71045; 74177; 74181; 76705; 80053; 81001; 82248; 83690; 85007; 85025; 87040; 88304; 94010; 94760; 96361; 96374; 96375; A4217; J0330; J0360; J1100; J1170; J1650; J1885; J2250; J2270; J2370; J2405; J2543; J2704; J2710; J3010; J7030; Q9967